=== PATIENT | female | born 1960 | race Caucasian/White ===

== ENCOUNTER 2020-01-05 17:29 | Inpatient (IN) | payer MEDICARE, SELFPAY ==
--- NOTE | ~2020-01-05 | XR_ITS ---
XR chest 1V portable DATE: 01/13/2020 11:07 INDICATION: Shortness of breath TECHNIQUE: Portable AP chest on 01/13/2020 1104 hours COMPARISON: None FINDINGS: Borderline or mild cardiac enlargement. Pulmonary vascular redistribution suggests mild pul monary venous hypertension. Calcified right upper lobe pulmonary granuloma. No pulmonary infiltrate o r consolidation, pleural effusion or pneumothorax is noted otherwise. Calcifications in the region of the left rotator cuff suggesting calcific tendinitis. IMPRESSION: Borderline heart size, pulmonary vascular redistribution; mild pulmonary venous hypertens ion is suggested. Reviewed, dictated and finalized at location A. IMPRESSION: Borderline heart size, pulmonary vascular redistribution; mild pulm onary venous hypertension is suggested.
--- NOTE | ~2020-01-05 | XR_ITS ---
EXAMINATION: XR chest 2V DATE: 01/15/2020 11:48 INDICATION: Cough TECHNIQUE: PA and lateral views of the chest are obtained. COMPARISON: 01/13/2020 FINDINGS: The lungs are free of acute opacities. There is no pleural effusion or pneumothorax. The ca rdiomediastinal silhouette is normal. A left upper extremity PICC ends with its tip in the distal sup erior vena cava. There is mild thoracic spondylosis. IMPRESSION: 1. No acute cardiopulmonary abnormality. Reviewed, dictated and finalized at location A.
--- NOTE | ~2020-01-05 | XR_ITS ---
EXAMINATION: XR knee RT min 4V EXAM DATE: 01/16/2020 16:40 INDICATION: One-month postop. TECHNIQUE: Right knee frontal, crosstable lateral, orthogonal oblique projections for interpretation . There is no prior study for comparison. FINDINGS: Right knee joint packed with orthopedic cement, and there is surgical arthrodesis with lucius s. Small foci of gas identified anterior to the patellar tendon. There is swelling surrounding the kn ee joint. Comparison with previous images would be helpful. There is some lucency along the anterolateral aspect of the proximal tibial metaphysis, region of the tibial tuberosity of uncertain clinical significance. This region has been indicated. IMPRESSION: 1. Right knee surgical changes. 2. Localized osteopenia at the tibial tuberosity. Small focus of gas anterior to the patellar tendon . Sequela from infection not excludable. Reviewed, dictated and finalized at location A. IMPRESSION: 1. Right knee surgical changes. 2. Localized osteopenia at the tibial tuberosity. Small focus of gas anterior to the patellar tendon. Sequela from infection not excludable.
[2020-01-05 18:02] VITALS: BP 171/67; PULSE 84; RESP 22; TEMP 37.1; O2SAT 96
[2020-01-05 18:04] VITALS: BMI 40.0
[2020-01-05 18:44] LABS: Glucose Point of Care 231 (65-105)
--- NOTE | 2020-01-05 19:20 | PC.NURSE ---
Patient ambulated one assist with wheeled walker and gait belt. LA PICC flushed freely, no blood return.
[2020-01-05 20:54] LABS: Glucose Point of Care 356 (65-105)
[2020-01-05 21:16] VITALS: PULSE 66
[2020-01-05] MEDS: hydrALAZINE HCL 25 MG TABLET PO (21:16)
[2020-01-05] MEDS: INSULIN GLARGINE (*BKC) 100 UNITS/ML 38 UNITS SUB-Q (21:16)
[2020-01-05] MEDS: METOPROLOL TARTRATE 50 MG TAB PO (21:16)
--- NOTE | 2020-01-05 22:00 | PC.NURSE ---
Patient BS elevated 356. New order recieved for 1x dose of novolog 70/30. Also received new order for lozenges
[2020-01-06] VITALS: BP 185/70; PULSE 80; RESP 16; TEMP 36.3; O2SAT 92
--- NOTE | 2020-01-06 00:28 | PM.EVENT ---
Event Note Event Note Event Note: Pt admitted in recovery from Covid pneumonia, right knee septic arthritis and consequential weakness. Alert, oriented, talkative, in a happy mood. No oxygen in use. Respirations not labored. Speaks full sentences. Decreased breath sounds with wheezes throughout. No rales or rhonchi. Right knee incision is stapled. Dilute blood drainage on distal portion of dressing. No redness or swelling near incision edges. Orders written per d.c. instructions.
[2020-01-06] MEDS: ALBUTEROL SULFATE (*SP) INHALER 2 PUFF INHALATION ×3 (06:19→21:51)
[2020-01-06] MEDS: hydrALAZINE HCL 25 MG TABLET PO ×3 (06:19→21:23)
[2020-01-06 06:58] LABS: Glucose Point of Care 111 (65-105)
[2020-01-06 08:00] VITALS: BP 178/52; PULSE 91; RESP 26; TEMP 37.2; O2SAT 98
[2020-01-06 08:13] VITALS: PULSE 91
[2020-01-06] MEDS: ENOXAPARIN 40 MG/0.4 ML SYRINGE SUB-Q (08:13)
[2020-01-06] MEDS: ASPIRIN 325 MG ENTERIC TABLET PO (08:13)
[2020-01-06] MEDS: METOPROLOL TARTRATE 50 MG TAB PO ×2 (08:13→21:23)
[2020-01-06] MEDS: ATORVASTATIN 10 MG TABLET 40 MG PO (08:14)
[2020-01-06] MEDS: FERROUS SULFATE 324 MG TABLET PO (08:14)
[2020-01-06] MEDS: PANTOPRAZOLE 40 MG TABLET PO (08:14)
[2020-01-06] MEDS: FUROSEMIDE 40 MG TABLET PO (08:14)
[2020-01-06] MEDS: lisinopriL 20 MG TABLET 40 MG PO (08:14)
[2020-01-06] MEDS: AMLODIPINE BESYLATE 5 MG TABLET 10 MG PO (08:15)
--- NOTE | 2020-01-06 10:43 | PM.IMHP ---
H&P: HPI History of Present Illness Chief complaint: swingbed Narrative: Renate Godinez is a 59 year old female admitted to swing rehab from [facility] in [facility] for weakness, recovering from COVID -19 infection, recovering from right knee septic arthritis IND, and continued treatment of type 2 diabetes and diastolic heart failure. I was able to witness the patient transfer from her recliner to her commode with assistance x1, using a gait belt and the patient using her walker. She is consistently elevating her right leg using the recliner or a trash can. I have placed orders for wound care of the right knee, ice packs as needed, James hose stockings to be applied,and elevation as needed. We will continue IV vancomycin as ordered at her discharge from [facility]. She will have a PT and OT evaluation today, she is currently on room air, has an occasional cough, but did not appear short of breath or dyspnea during our long conversation or during her transfer. She does have wheezing with lung auscultation and diminished areas throughout. When I walked in for my 1st examination of this patient, she had just completed making a large puddle of urine on the floor in front of her recliner. The nursing staff had warned me that she had been doing this throughout the morning, despite nursing staff having cleaned her up multiple times. The patient has been urinating on the floor, on her recliner, not keeping her depends on, not calling the staff, and saying there is nothing she could do about it since she is on diuretics. Renate and I had a discussion about the importance of her planning had by keeping the gait belt on her body and by pushing the nurse call button will had a time if possible. I also informed her that she needs to keep her depends on and wear them, not refusing them in the future. She denies any trouble with bowel movements, eating and drinking, and understands that she needs to work on her urinary incontinence as this poses a great risk for her to fall and/or to develop skin breakdown. She voiced understanding and will work on a plan with the nursing staff to get this under control. Review of Systems Review of Systems: All systems reviewed & are unremarkable except as noted in HPI and below Constitutional: Constitutional: Reports as per HPI, Denies excessive sweating, Denies headache(s), Denies increased appetite, Denies snoring, Reports weakness (due to right Knee I and D paired with her level of obesity/deconditioning) and Denies weight gain Eyes: Eyes: Reports as per HPI, Denies blurry vision, Denies exophthalmos, Denies diplopia, Denies floaters, Denies loss of peripheral vision and Denies photophobia ENT: Reports as per HPI, Denies Normal hearing present, Denies facial pain, Denies headache(s), Denies nasal congestion, Denies odynophagia and Denies tinnitus Cardiovascular: Cardiovascular: Reports as per HPI, Denies chest pain, Denies diaphoresis, Denies lightheadedness and Denies palpitations Respiratory: Respiratory: Reports as per HPI, Denies no additional respiratory complaints, Denies chest congestion, Denies cough, Denies hemoptysis, Denies dyspnea, Denies dyspnea on exertion, Denies snoring and Denies wheezing Gastrointestinal: Gastrointestinal: Reports as per HPI, Denies abdominal pain, Denies melena, Denies bloating, Denies hematochezia, Denies constipation, Denies heartburn, Denies diarrhea, Denies nausea, Denies odynophagia, Denies vomiting and Denies hematemesis Genitourinary: Genitourinary: Reports as per HPI, Denies hematuria, Denies urinary frequency, Reports nocturia ( On a morning diuretic pill.), Denies flank pain, Reports urinary incontinence, Denies urinary hesitancy and Reports urinary urgency Musculoskeletal: Musculoskeletal: Reports as per HPI, Denies back pain, Reports myalgias, Reports arthralgias ( Right knee pain due to septic arthritis, I and D), Reports joint swelling, Denies neck pain and
[2020-01-06 12:21] LABS: Glucose Point of Care 176 (65-105)
[2020-01-06 16:00] VITALS: BP 149/71; PULSE 88; RESP 20; TEMP 37.1; O2SAT 93
[2020-01-06 16:05] LABS: Hematocrit 34.9 % (35.0-49.0); Hemoglobin 10.4 g/dL (12.0-15.0); Mean Corpuscular HGB Conc 29.8 g/dL (32.0-36.0); Mean Corpuscular Hemoglobin 26.7 pg (27.0-31.0); Mean Corpuscular Volume 89.5 fL (78.0-102.0); Mean Platelet Volume 11.1 fl (9.2-11.8); Platelet Count Result 292 K/mm3 (150-420); Red Cell Distribution Width 19.4 % (11.6-14.4)
--- NOTE | 2020-01-06 16:13 | PC.NURSE ---
Patient refused NICKI carrizales
[2020-01-06 16:32] LABS: Band Neutrophils Percent 0 % (0-6); Eosinophils Percent Manual 10 % (1-6); Lymphocytes Absolute Manual 0.75 K/mm3 (1.1-4.5); Lymphocytes Percent Manual 15 % (18-44); Monocytes Absolute Manual 0.25 K/mm3 (0.1-0.90); Monocytes Percent Manual 5 % (3-9); Neutrophils Percent Manual 70 % (46-73); Platelet Estimate Adequate (Adequate); Total Cells Counted 100
[2020-01-06 16:40] LABS: Hemoglobin A1C 7.3 % (<5.7)
[2020-01-06 16:41] LABS: Alanine Aminotransferase 15 U/L (14-59); Albumin Level 3.1 g/dL (3.4-5.0); Alkaline Phosphatase 82 U/L (46-116); Anion Gap 14.4 mmol/L (7-16); Aspartate Amino Transferase 14 U/L (15-37); Bilirubin,Total 0.3 mg/dL (0.00-1.00); Blood Urea Nitrogen 9 mg/dL (7-18); CRP 2.9 mg/dL (0.0-0.9); Calcium 8.9 mg/dL (8.5-10.1); Carbon Dioxide 31 mmol/L (21-32); Chloride 99 mmol/L (98-108); Estimated Glomerular Filt Rate > 60; Ferritin 73 ng/mL (8-252); Glucose 209 mg/dL (70-99); Iron 35 ug/dL (50-170); Osmolality Calculated 294 mOsm/kg (285-295); Percent Iron Saturation 16 % (12-57); Potassium 4.4 mmol/L (3.5-5.1); Sodium 140 mmol/L (136-145)
[2020-01-06 16:46] LABS: Thyroid Stimulating Hormone Reflex 2.87 u/IU/mL (0.36-3.74)
[2020-01-06 21:15] LABS: Glucose Point of Care 329 (65-105)
[2020-01-06] MEDS: INSULIN GLARGINE (*BKC) 100 UNITS/ML 38 UNITS SUB-Q (21:22)
[2020-01-06] MEDS: BENZOCAINE/MENTHOL (*BKC) 18 EA LOZENGE 1 LOZENGE PO (22:02)
[2020-01-06 23:50] VITALS: BP 134/65; PULSE 75; RESP 14; TEMP 36.8; O2SAT 94
[2020-01-07] MEDS: hydrALAZINE HCL 25 MG TABLET PO ×3 (05:44→21:43)
[2020-01-07] MEDS: ALBUTEROL SULFATE (*SP) INHALER 2 PUFF INHALATION ×3 (05:45→21:42)
[2020-01-07 07:47] LABS: Glucose Point of Care 209 (65-105)
[2020-01-07 08:00] VITALS: BP 135/68; PULSE 72; RESP 14; TEMP 36.8; O2SAT 93
[2020-01-07] MEDS: AMLODIPINE BESYLATE 5 MG TABLET 10 MG PO (08:53)
[2020-01-07] MEDS: ASPIRIN 325 MG ENTERIC TABLET PO (08:53)
[2020-01-07] MEDS: ATORVASTATIN 10 MG TABLET 40 MG PO (08:53)
[2020-01-07] MEDS: FERROUS SULFATE 324 MG TABLET PO (08:54)
[2020-01-07] MEDS: METOPROLOL TARTRATE 50 MG TAB PO ×2 (08:54→21:43)
[2020-01-07] MEDS: ENOXAPARIN 40 MG/0.4 ML SYRINGE SUB-Q (08:54)
[2020-01-07] MEDS: FUROSEMIDE 40 MG TABLET PO (08:54)
[2020-01-07] MEDS: PANTOPRAZOLE 40 MG TABLET PO (08:54)
[2020-01-07] MEDS: lisinopriL 20 MG TABLET 40 MG PO (08:55)
[2020-01-07 10:14] LABS: Add Urine Microscopic? YES; Appearance Urine Sl Cloudy (Clear); Bilirubin Urine Negative (Negative); Blood Urine Negative (Negative); Color Urine Yellow (Yellow); Glucose Urine UA Negative (Negative); Ketones Urine Negative (Negative); Leukocyte Esterase Ur Negative (Negative); Nitrate Urine Negative (Negative); Protein Urine Negative (Negative); Urobilinogen Urine 0.2 mg/dL (0.2-1.0); pH Urine 6.5 (5.0-8.0)
[2020-01-07 10:46] LABS: RBC Urine None seen /hpf (0-2); Squamous Epithelial Cell Urine Many /hpf (Few); WBC Urine None seen /hpf (0-3)
[2020-01-07 10:47] LABS: Bacteria Urine Trace /hpf
[2020-01-07 12:09] LABS: Glucose Point of Care 185 (65-105)
[2020-01-07] MEDS: BENZOCAINE/MENTHOL (*BKC) 18 EA LOZENGE 1 LOZENGE PO ×2 (12:13→21:45)
[2020-01-07 16:00] VITALS: BP 128/66; PULSE 74; RESP 16; TEMP 36.9; O2SAT 95
[2020-01-07 16:54] LABS: Glucose Point of Care 200 (65-105)
--- NOTE | 2020-01-07 20:05 | PCDIET ---
Patient up in recliner with legs elevated. Refuses NICKI carrizales. PICC line intact with no drainage or swelling. Dressing clean, dry, intact.
[2020-01-07] MEDS: INSULIN GLARGINE (*BKC) 100 UNITS/ML 38 UNITS SUB-Q (21:41)
[2020-01-07] MEDS: GABAPENTIN 400 MG CAPSULE PO (21:42)
[2020-01-07 22:19] LABS: Glucose Point of Care 300 (65-105)
[2020-01-07 23:37] VITALS: BP 133/45; PULSE 74; RESP 18; TEMP 37.1; O2SAT 94
--- NOTE | 2020-01-07 23:45 | PC.NURSE ---
at 2309 on 01/07/2020 a norco was scanned out but it had to be wasted because it fell on the floor before administration. A new norco was pulled and given however I was unable to undo the administration of the wasted norco pill so I was unable to scan out the norco that was pulled after the first pill was wasted.
[2020-01-08] MEDS: hydrALAZINE HCL 25 MG TABLET PO ×3 (06:27→21:21)
[2020-01-08] MEDS: ALBUTEROL SULFATE (*SP) INHALER 2 PUFF INHALATION ×2 (06:27→18:42)
[2020-01-08 08:00] VITALS: BP 130/56; PULSE 72; RESP 18; TEMP 37.2; O2SAT 94
[2020-01-08] MEDS: ATORVASTATIN 10 MG TABLET 40 MG PO (08:26)
[2020-01-08] MEDS: ASPIRIN 325 MG ENTERIC TABLET PO (08:26)
[2020-01-08] MEDS: FUROSEMIDE 40 MG TABLET PO (08:27)
[2020-01-08] MEDS: AMLODIPINE BESYLATE 5 MG TABLET 10 MG PO (08:27)
[2020-01-08] MEDS: PANTOPRAZOLE 40 MG TABLET PO (08:27)
[2020-01-08] MEDS: FERROUS SULFATE 324 MG TABLET PO (08:27)
[2020-01-08] MEDS: lisinopriL 20 MG TABLET 40 MG PO (08:27)
[2020-01-08] MEDS: METOPROLOL TARTRATE 50 MG TAB PO ×2 (08:28→21:21)
[2020-01-08] MEDS: ENOXAPARIN 40 MG/0.4 ML SYRINGE SUB-Q (08:28)
[2020-01-08 10:43] LABS: Glucose Point of Care 162 (65-105)
[2020-01-08 11:47] LABS: Glucose Point of Care 240 (65-105)
--- NOTE | 2020-01-08 15:07 | PM.EVENT ---
Event Note Event Note Event Note: reviewed patient labs and vital signs
[2020-01-08 16:00] VITALS: BP 124/50; PULSE 66; RESP 14; TEMP 36.8; O2SAT 94
[2020-01-08 16:49] LABS: Glucose Point of Care 307 (65-105)
--- NOTE | 2020-01-08 17:41 | PC.NURSE ---
Patient up in recliner. [facility]. Tolerated well. Able to feed self. LCTA, bowel sounds present. PICC line dressing clean, dry, and intact with no redness, edema or drainage oberved around the insertion site. Pleasant and cooperative. Observed occasional nonproductive cough. Feeds self tray. Call light and possessions within reach.
--- NOTE | 2020-01-08 18:37 | PC.NURSE ---
Up to commode and back to recliner with walker and stand by assist. Tolerated well. Continues in isolation. Nonproductive cough noted occasionally. Call light and belongings within reach.
[2020-01-08] MEDS: PHARMACIST COMMUNICATION ORDER 1 EACH XX (20:01)
[2020-01-08 20:57] LABS: Vancomycin Trough 12.8 ug/mL (10.0-15.0)
--- NOTE | 2020-01-08 21:11 | PC.NURSE ---
Pharmacy called and no change in vancomycin dose
--- NOTE | 2020-01-08 21:14 | PC.NURSE ---
Candy from pharmacy called back, orders given to give the 500mg dose of vac tonight, and the dose will change to 750mg beginning in the morning.
[2020-01-08 21:21] VITALS: PULSE 65
[2020-01-08] MEDS: INSULIN GLARGINE (*BKC) 100 UNITS/ML 38 UNITS SUB-Q (21:21)
[2020-01-08] MEDS: BENZOCAINE/MENTHOL (*BKC) 18 EA LOZENGE 1 LOZENGE PO (21:22)
[2020-01-08 21:48] LABS: Glucose Point of Care 406 (65-105)
--- NOTE | 2020-01-08 21:50 | PC.NURSE ---
Call placed to Dr Montes, report given of patient blood glucose of 406, stated he will put in sliding scale insulin orders
[2020-01-08 23:06] VITALS: BP 128/50; PULSE 77; RESP 20; TEMP 37; O2SAT 90
--- NOTE | 2020-01-09 00:30 | PC.NURSE ---
pt had urinated in the chair and floor, cleaned and new linen applied, pt reports she was asleep and couldn't make it in time
[2020-01-09] MEDS: BENZOCAINE/MENTHOL (*BKC) 18 EA LOZENGE 1 LOZENGE PO (02:49)
--- NOTE | 2020-01-09 03:05 | PC.NURSE ---
pt sitting in recliner watching tv, belongings and call light within reach, pt given hot tea
[2020-01-09] MEDS: hydrALAZINE HCL 25 MG TABLET PO ×3 (05:20→21:24)
--- NOTE | 2020-01-09 07:39 | PHAR ---
spoke with [facility]pt [facility] was prior. confirmed pt was on vanc 500mg q12h prior to discharge to [facility]. pt was prev on 750mg q12h but trough was 21.5 on this dose, so dose was lowered to 500mg q12h and they had recorded trough of 17.
[2020-01-09 08:00] VITALS: BP 139/75; PULSE 72; RESP 16; TEMP 36.8; O2SAT 94
[2020-01-09] MEDS: ALBUTEROL SULFATE (*SP) INHALER 2 PUFF INHALATION ×3 (08:00→17:08)
[2020-01-09] MEDS: ASPIRIN 325 MG ENTERIC TABLET PO (08:00)
[2020-01-09] MEDS: lisinopriL 20 MG TABLET 40 MG PO (08:01)
[2020-01-09] MEDS: METOPROLOL TARTRATE 50 MG TAB PO ×2 (08:01→21:24)
[2020-01-09] MEDS: ATORVASTATIN 10 MG TABLET 40 MG PO (08:01)
[2020-01-09] MEDS: AMLODIPINE BESYLATE 5 MG TABLET 10 MG PO (08:01)
[2020-01-09] MEDS: FERROUS SULFATE 324 MG TABLET PO (08:02)
[2020-01-09] MEDS: ENOXAPARIN 40 MG/0.4 ML SYRINGE SUB-Q (08:02)
[2020-01-09] MEDS: PANTOPRAZOLE 40 MG TABLET PO (08:02)
[2020-01-09] MEDS: FUROSEMIDE 40 MG TABLET PO (08:02)
[2020-01-09 08:18] LABS: Glucose Point of Care 245 (65-105)
[2020-01-09 11:39] LABS: Glucose Point of Care 359 (65-105)
--- NOTE | 2020-01-09 14:12 | P.PNIM_ITS ---
Progress Note: A&P Assessment and Plan (1) Weakness: Code(s): R53.1 - Weakness Status: Acute Assessment and Plan: * Exhibit tolerance during physical activity as evidenced by a normal fluctuation of vital signs during physical activity. * Patient will be ability to perform required activities of daily living. * Provide appropriate nutrition for healing and strength. * Use appropriate to prevent falls. * Continue physical therapy/occupational therapy. (2) COVID-19 virus infection: Code(s): U07.1 - COVID-19 Status: Acute Assessment and Plan: * continue airborne isolation for 72 hours until verified fever free * albuterol inhaler scheduled p.r.n. * vital signs and pulse ox checked daily * she is currently a full code and according to [place]'s note her sister Mumtaz Soto is to make decisions for her if she is unable to make them on her own (3) Septic arthritis of knee, right: Code(s): M00.9 - Pyogenic arthritis, unspecified Status: Acute Assessment and Plan: * Recurrent right prostatic knee septic arthritis status post right knee I and D Plus exchange of antibiotic cement spacer for free current carol ann prostatic infection * continue antibiotics for her knee, IV vancomycin until January 26. * she is to follow-up with Dr. Estrada regarding orthopedic questions and dressing changes * PT OT evaluation and treatment * daily dressing changes, p.r.n. dressing changes if dressing saturated * elevate lower extremities throughout the day to help improve edema and minimize swelling * apply ice to the right knee or right lower extremity as needed to reduce swelling and improved pain control * apply Jamse hose stockings knee-highs daily * black wrap-around brace in place for support to right knee (4) Type 2 diabetes mellitus: Code(s): E11.9 - Type 2 diabetes mellitus without complications Status: Acute Assessment and Plan: * sliding scale insulin with hypoglycemia p.r.n. in place * Blood sugar less than 300 will adjust as needed * Continue diabetic consistent carb diet (5) Diastolic heart failure: Code(s): I50.30 - Unspecified diastolic (congestive) heart failure Status: Acute Assessment and Plan: * continue her home Lasix dose of 40 mg p.o. daily * hydralazine was recently added to achieve better blood pressure control at [facility] * [facility] also completed the echo showing moderate LVH Subjective Date/time seen: 01/09/20 14:12 patient is sitting up in chair at the time of assessment surgical site to the right knee clean dry intact. she has no complaints at this time. She is requesting that we add tramadol to pain regimen. She noted that tramadol is what she takes at home. She also noted that her physical therapy/ occupational therapy is going well. She remains nonweightbearing to right extremity. Patient able to tolerate all meals , slept well. Patient denies SOB, CP, palpitation, extremity numbness, lightheadness, dizziness, constipation, diarrhea, chills or fever. Review of Systems Review of Systems: All systems reviewed & are unremarkable except as noted in HPI and below Constitutional: Constitutional: Reports as per HPI, Denies excessive sweating, Denies headache(s), Denies increased appetite, Denies snoring, Reports weakness (due to right Knee I and D paired with her level of obesity/deconditioning) and Denies weight gain Eyes: Eyes: Reports as per HPI, Denies blurry vision, Denies exophthalmos, Denies diplopia, Denies floaters, Denies l
--- NOTE | 2020-01-09 14:12 | PM.IMPN ---
Progress Note: A&P Assessment and Plan (1) Weakness: Code(s): R53.1 - Weakness Status: Acute Assessment and Plan: Exhibit tolerance during physical activity as evidenced by a normal fluctuation of vital signs during physical activity. Patient will be ability to perform required activities of daily living. Provide appropriate nutrition for healing and strength. Use appropriate to prevent falls. Continue physical therapy/occupational therapy. (2) COVID-19 virus infection: Code(s): U07.1 - COVID-19 Status: Acute Assessment and Plan: continue airborne isolation for 72 hours until verified fever free albuterol inhaler scheduled p.r.n. vital signs and pulse ox checked daily she is currently a full code and according to [place]'s note her sister Mumtaz Soto is to make decisions for her if she is unable to make them on her own (3) Septic arthritis of knee, right: Code(s): M00.9 - Pyogenic arthritis, unspecified Status: Acute Assessment and Plan: Recurrent right prostatic knee septic arthritis status post right knee I and D Plus exchange of antibiotic cement spacer for free current carol ann prostatic infection continue antibiotics for her knee, IV vancomycin until January 26. she is to follow-up with Dr. Estrada regarding orthopedic questions and dressing changes PT OT evaluation and treatment daily dressing changes, p.r.n. dressing changes if dressing saturated elevate lower extremities throughout the day to help improve edema and minimize swelling apply ice to the right knee or right lower extremity as needed to reduce swelling and improved pain control apply James hose stockings knee-highs daily black wrap-around brace in place for support to right knee (4) Type 2 diabetes mellitus: Code(s): E11.9 - Type 2 diabetes mellitus without complications Status: Acute Assessment and Plan: sliding scale insulin with hypoglycemia p.r.n. in place Blood sugar less than 300 will adjust as needed Continue diabetic consistent carb diet (5) Diastolic heart failure: Code(s): I50.30 - Unspecified diastolic (congestive) heart failure Status: Acute Assessment and Plan: continue her home Lasix dose of 40 mg p.o. daily hydralazine was recently added to achieve better blood pressure control at [facility] also completed the echo showing moderate LVH Subjective Date/time seen: 01/09/20 14:12 patient is sitting up in chair at the time of assessment surgical site to the right knee clean dry intact. she has no complaints at this time. She is requesting that we add tramadol to pain regimen. She noted that tramadol is what she takes at home. She also noted that her physical therapy/ occupational therapy is going well. She remains nonweightbearing to right extremity. Patient able to tolerate all meals , slept well. Patient denies SOB, CP, palpitation, extremity numbness, lightheadness, dizziness, constipation, diarrhea, chills or fever. Review of Systems Review of Systems: All systems reviewed & are unremarkable except as noted in HPI and below Constitutional: Constitutional: Reports as per HPI, Denies excessive sweating, Denies headache(s), Denies increased appetite, Denies snoring, Reports weakness (due to right Knee I and D paired with her level of obesity/deconditioning) and Denies weight gain Eyes: Eyes: Reports as per HPI, Denies blurry vision, Denies exophthalmos, Denies diplopia, Denies floaters, Denies loss of peripheral vision and Denies photophobia ENT: Reports as per HPI, Denies Normal hearing present, Denies facial pain, Denies headache(s), Denies nasal congestion, Denies neck pain, Denies odynophagia and Denies tinnitus Cardiovascular: Cardiovascular: Reports as per HPI, Denies chest pain, Denies diaphoresis, Denies lightheadedness, Denies palpitations, Denies dyspnea and Denies dyspnea o
[2020-01-09 16:00] VITALS: BP 139/66; PULSE 86; RESP 18; TEMP 36.6; O2SAT 96
[2020-01-09 17:28] LABS: Glucose Point of Care 363 (65-105)
[2020-01-09 18:26] LABS: Vitamin D 25 Hydroxy 6 ng/mL (30-100)
[2020-01-09] MEDS: INSULIN GLARGINE (*BKC) 100 UNITS/ML 38 UNITS SUB-Q (21:24)
[2020-01-09 21:48] LABS: Glucose Point of Care 413 (65-105)
--- NOTE | 2020-01-09 23:52 | P.PNCROSS_ITS ---
Event Note Event Note Event Note: Patient denies complaints save for occasional shortness of breath and cough. alert and oriented. Mucous membranes are [place] and moist. Regular rate and rhythm. Distal pulses are full and symmetric. Extremities are warm dry and pink. No edema. Bibasilar expiratory wheezes. No increased work of breathing. Continuing physical therapy for right knee, currently only at toe-touch. I have examined the patient and reviewed the chart. I discussed the patient's care with Willy Curran APN and agree with her assessment and plan.
[2020-01-10] VITALS: BP 123/67; PULSE 70; RESP 24; TEMP 36.6; O2SAT 93
[2020-01-10 05:51] LABS: Estimated Glomerular Filt Rate > 60
[2020-01-10] MEDS: hydrALAZINE HCL 25 MG TABLET PO ×3 (05:55→21:25)
[2020-01-10 07:44] LABS: Glucose Point of Care 226 (65-105)
[2020-01-10 08:00] VITALS: BP 154/62; PULSE 87; RESP 22; TEMP 36.9; O2SAT 97
[2020-01-10] MEDS: ENOXAPARIN 40 MG/0.4 ML SYRINGE SUB-Q (08:57)
[2020-01-10 09:00] VITALS: PULSE 87
[2020-01-10] MEDS: FUROSEMIDE 40 MG TABLET PO (09:00)
[2020-01-10] MEDS: PANTOPRAZOLE 40 MG TABLET PO (09:00)
[2020-01-10] MEDS: ATORVASTATIN 10 MG TABLET 40 MG PO (09:00)
[2020-01-10] MEDS: METOPROLOL TARTRATE 50 MG TAB PO ×2 (09:00→21:25)
[2020-01-10] MEDS: AMLODIPINE BESYLATE 5 MG TABLET 10 MG PO (09:01)
[2020-01-10] MEDS: lisinopriL 20 MG TABLET 40 MG PO (09:01)
[2020-01-10] MEDS: FERROUS SULFATE 324 MG TABLET PO (09:01)
[2020-01-10] MEDS: ALBUTEROL SULFATE (*SP) INHALER 2 PUFF INHALATION ×3 (09:04→16:31)
[2020-01-10] MEDS: ASPIRIN 325 MG ENTERIC TABLET PO (09:04)
[2020-01-10 11:38] LABS: Glucose Point of Care 240 (65-105)
[2020-01-10 16:00] VITALS: BP 156/56; PULSE 75; RESP 22; TEMP 36.7
[2020-01-10 16:31] LABS: Glucose Point of Care 268 (65-105)
[2020-01-10 21:25] VITALS: PULSE 75
[2020-01-10] MEDS: INSULIN GLARGINE (*BKC) 100 UNITS/ML 38 UNITS SUB-Q (21:28)
[2020-01-10 21:41] LABS: Glucose Point of Care 278 (65-105)
[2020-01-11] VITALS: BP 152/60; PULSE 70; RESP 20; TEMP 36.7; O2SAT 92
[2020-01-11] MEDS: hydrALAZINE HCL 25 MG TABLET PO ×3 (05:38→21:49)
[2020-01-11 07:47] LABS: Glucose Point of Care 206 (65-105)
[2020-01-11 08:00] VITALS: BP 154/66; PULSE 82; RESP 20; TEMP 37.1; O2SAT 94
[2020-01-11] MEDS: ENOXAPARIN 40 MG/0.4 ML SYRINGE SUB-Q (08:09)
[2020-01-11] MEDS: ALBUTEROL SULFATE (*SP) INHALER 2 PUFF INHALATION ×3 (08:12→17:13)
[2020-01-11] MEDS: PANTOPRAZOLE 40 MG TABLET PO (08:12)
[2020-01-11] MEDS: FERROUS SULFATE 324 MG TABLET PO (08:12)
[2020-01-11] MEDS: ASPIRIN 325 MG ENTERIC TABLET PO (08:12)
[2020-01-11] MEDS: lisinopriL 20 MG TABLET 40 MG PO (08:13)
[2020-01-11] MEDS: ATORVASTATIN 10 MG TABLET 40 MG PO (08:13)
[2020-01-11] MEDS: FUROSEMIDE 40 MG TABLET PO (08:13)
[2020-01-11 08:14] VITALS: PULSE 88
[2020-01-11] MEDS: METOPROLOL TARTRATE 50 MG TAB PO ×2 (08:14→21:49)
[2020-01-11] MEDS: AMLODIPINE BESYLATE 5 MG TABLET 10 MG PO (08:14)
[2020-01-11 08:35] LABS: Hematocrit 31.2 % (35.0-49.0); Hemoglobin 9.6 g/dL (12.0-15.0); Mean Corpuscular HGB Conc 30.8 g/dL (32.0-36.0); Mean Corpuscular Hemoglobin 26.8 pg (27.0-31.0); Mean Corpuscular Volume 87.2 fL (78.0-102.0); Mean Platelet Volume 10.4 fl (9.2-11.8); Platelet Count Result 235 K/mm3 (150-420); Red Blood Count 3.58 M/mm3 (4.20-5.40); Red Cell Distribution Width 18.3 % (11.6-14.4); White Blood Count 5.5 K/mm3 (4.8-10.8)
[2020-01-11 08:48] LABS: Alanine Aminotransferase 13 U/L (14-59); Albumin Level 2.7 g/dL (3.4-5.0); Alkaline Phosphatase 74 U/L (46-116); Anion Gap 11.6 mmol/L (7-16); Aspartate Amino Transferase 11 U/L (15-37); Bilirubin,Total 0.2 mg/dL (0.00-1.00); Blood Urea Nitrogen 11 mg/dL (7-18); Calcium 9.1 mg/dL (8.5-10.1); Carbon Dioxide 32 mmol/L (21-32); Chloride 98 mmol/L (98-108); Estimated Glomerular Filt Rate > 60; Glucose 183 mg/dL (70-99); Osmolality Calculated 290 mOsm/kg (285-295); Potassium 3.6 mmol/L (3.5-5.1); Sodium 138 mmol/L (136-145); Total Protein 6.9 g/dL (6.4-8.2)
[2020-01-11 12:13] LABS: Glucose Point of Care 332 (65-105)
[2020-01-11 16:00] VITALS: BP 138/48; PULSE 78; RESP 16; TEMP 36.2; O2SAT 96
[2020-01-11] MEDS: hydrALAZINE 10 MG TABLET 5 MG PO (17:12)
[2020-01-11 17:26] LABS: Glucose Point of Care 344 (65-105)
[2020-01-11] MEDS: INSULIN GLARGINE (*BKC) 100 UNITS/ML 38 UNITS SUB-Q (21:48)
[2020-01-11] MEDS: BENZOCAINE/MENTHOL (*BKC) 18 EA LOZENGE 1 LOZENGE PO (21:50)
[2020-01-11 22:51] LABS: Glucose Point of Care 381 (65-105)
[2020-01-11 23:05] VITALS: BP 134/43; PULSE 82; RESP 18; TEMP 36.3; O2SAT 93
[2020-01-12] MEDS: hydrALAZINE HCL 25 MG TABLET PO ×3 (05:20→21:56)
[2020-01-12 07:30] VITALS: BP 133/51; PULSE 81; RESP 18; TEMP 36.8; O2SAT 93
[2020-01-12 08:21] LABS: Glucose Point of Care 273 (65-105)
[2020-01-12] MEDS: hydrALAZINE 10 MG TABLET 5 MG PO ×2 (09:23→17:14)
[2020-01-12 09:24] VITALS: PULSE 81
[2020-01-12] MEDS: METOPROLOL TARTRATE 50 MG TAB PO ×2 (09:24→21:56)
[2020-01-12] MEDS: PANTOPRAZOLE 40 MG TABLET PO (09:24)
[2020-01-12] MEDS: lisinopriL 20 MG TABLET 40 MG PO (09:24)
[2020-01-12] MEDS: FUROSEMIDE 40 MG TABLET PO (09:24)
[2020-01-12] MEDS: ASPIRIN 325 MG ENTERIC TABLET PO (09:24)
[2020-01-12] MEDS: ALBUTEROL SULFATE (*SP) INHALER 2 PUFF INHALATION ×3 (09:25→17:14)
[2020-01-12] MEDS: AMLODIPINE BESYLATE 5 MG TABLET 10 MG PO (09:25)
[2020-01-12] MEDS: FERROUS SULFATE 324 MG TABLET PO (09:25)
[2020-01-12] MEDS: ENOXAPARIN 40 MG/0.4 ML SYRINGE SUB-Q (09:25)
[2020-01-12] MEDS: ATORVASTATIN 10 MG TABLET 40 MG PO (09:25)
[2020-01-12] MEDS: BENZOCAINE/MENTHOL (*BKC) 18 EA LOZENGE 1 LOZENGE PO ×3 (09:40→22:12)
[2020-01-12 12:24] LABS: Glucose Point of Care 353 (65-105)
--- NOTE | 2020-01-12 14:25 | PC.NURSE ---
Patient sleeping quietly in recliner with BLE elevated. No distress noted. Call light and belongings at side.
[2020-01-12 15:45] VITALS: BP 124/51; PULSE 76; RESP 18; TEMP 36.6; O2SAT 96
[2020-01-12 17:48] LABS: Glucose Point of Care 251 (65-105)
[2020-01-12 20:57] LABS: Vancomycin Trough 19.5 ug/mL (10.0-15.0)
[2020-01-12 21:56] VITALS: PULSE 75
[2020-01-12] MEDS: INSULIN GLARGINE (*BKC) 100 UNITS/ML 38 UNITS SUB-Q (21:56)
[2020-01-12 22:12] LABS: Glucose Point of Care 375 (65-105)
[2020-01-13] VITALS: BP 148/54; PULSE 76; RESP 22; TEMP 36.9; O2SAT 93
[2020-01-13] MEDS: BENZOCAINE/MENTHOL (*BKC) 18 EA LOZENGE 1 LOZENGE PO ×3 (02:33→20:42)
[2020-01-13] MEDS: ALBUTEROL SULFATE (*SP) INHALER 2 PUFF INHALATION ×2 (02:49→09:11)
[2020-01-13] MEDS: BENZONATATE 100 MG CAPSULE 200 MG PO ×3 (04:22→17:12)
[2020-01-13 06:34] LABS: Hematocrit 30.8 % (35.0-49.0); Hemoglobin 9.1 g/dL (12.0-15.0); Mean Corpuscular HGB Conc 29.5 g/dL (32.0-36.0); Mean Platelet Volume 11.2 fl (9.2-11.8); Platelet Count Result 238 K/mm3 (150-420); Red Cell Distribution Width 18.3 % (11.6-14.4); White Blood Count 5.1 K/mm3 (4.8-10.8)
[2020-01-13 07:02] LABS: Alanine Aminotransferase 13 U/L (14-59); Albumin Level 2.9 g/dL (3.4-5.0); Alkaline Phosphatase 76 U/L (46-116); Anion Gap 7.8 mmol/L (7-16); Aspartate Amino Transferase 8 U/L (15-37); Bilirubin,Total 0.2 mg/dL (0.00-1.00); Blood Urea Nitrogen 11 mg/dL (7-18); Calcium 8.8 mg/dL (8.5-10.1); Carbon Dioxide 34 mmol/L (21-32); Chloride 97 mmol/L (98-108); Estimated Glomerular Filt Rate > 60; Glucose 282 mg/dL (70-99); Osmolality Calculated 289 mOsm/kg (285-295); Potassium 3.8 mmol/L (3.5-5.1); Sodium 135 mmol/L (136-145); Total Protein 6.6 g/dL (6.4-8.2)
[2020-01-13 07:30] VITALS: BP 154/67; PULSE 80; RESP 18; TEMP 36.8; O2SAT 91
[2020-01-13 07:55] LABS: Glucose Point of Care 297 (65-105)
[2020-01-13] MEDS: PANTOPRAZOLE 40 MG TABLET PO (09:11)
[2020-01-13] MEDS: ENOXAPARIN 40 MG/0.4 ML SYRINGE SUB-Q (09:11)
[2020-01-13] MEDS: ASPIRIN 325 MG ENTERIC TABLET PO (09:11)
[2020-01-13] MEDS: ATORVASTATIN 10 MG TABLET 40 MG PO (09:11)
[2020-01-13 09:12] VITALS: PULSE 80
[2020-01-13] MEDS: METOPROLOL TARTRATE 50 MG TAB PO ×2 (09:12→20:16)
[2020-01-13] MEDS: FUROSEMIDE 40 MG TABLET PO (09:12)
[2020-01-13] MEDS: hydrALAZINE HCL 25 MG TABLET 50 MG PO ×4 (09:12→20:15)
[2020-01-13] MEDS: AMLODIPINE BESYLATE 5 MG TABLET 10 MG PO (09:12)
[2020-01-13] MEDS: FERROUS SULFATE 324 MG TABLET PO (09:12)
[2020-01-13] MEDS: lisinopriL 20 MG TABLET 40 MG PO (09:13)
[2020-01-13 11:26] LABS: Glucose Point of Care 374 (65-105)
[2020-01-13 15:56] VITALS: BP 121/43; PULSE 98; RESP 18; TEMP 36.6; O2SAT 76
[2020-01-13 17:38] LABS: Glucose Point of Care 118 (65-105)
[2020-01-13 20:16] VITALS: PULSE 68
[2020-01-13] MEDS: INSULIN GLARGINE (*BKC) 100 UNITS/ML 38 UNITS SUB-Q (20:16)
[2020-01-13 20:29] LABS: Glucose Point of Care 230 (65-105)
--- NOTE | 2020-01-13 23:05 | PC.NURSE ---
pt sitting in recliner watching tv, denies any needs at this time.
[2020-01-14 00:33] VITALS: BP 147/54; PULSE 69; RESP 18; TEMP 36.8; O2SAT 93
--- NOTE | 2020-01-14 02:00 | PC.NURSE ---
pt resting in recliner, no evidence of distress noted
[2020-01-14] MEDS: BENZOCAINE/MENTHOL (*BKC) 18 EA LOZENGE 1 LOZENGE PO ×2 (03:56→14:09)
[2020-01-14 06:30] LABS: Estimated Glomerular Filt Rate > 60
[2020-01-14 08:00] VITALS: BP 118/46; PULSE 78; RESP 24; TEMP 36.6; O2SAT 94
[2020-01-14 08:10] LABS: Glucose Point of Care 126 (65-105)
[2020-01-14] MEDS: PANTOPRAZOLE 40 MG TABLET PO (09:18)
[2020-01-14] MEDS: ENOXAPARIN 40 MG/0.4 ML SYRINGE SUB-Q (09:18)
[2020-01-14] MEDS: AMLODIPINE BESYLATE 5 MG TABLET 10 MG PO (09:20)
[2020-01-14 09:22] VITALS: PULSE 78
[2020-01-14] MEDS: BENZONATATE 100 MG CAPSULE 200 MG PO ×3 (09:22→16:14)
[2020-01-14] MEDS: METOPROLOL TARTRATE 50 MG TAB PO (09:22)
[2020-01-14] MEDS: ASPIRIN 325 MG ENTERIC TABLET PO (09:22)
[2020-01-14] MEDS: ATORVASTATIN 10 MG TABLET 40 MG PO (09:22)
[2020-01-14] MEDS: FERROUS SULFATE 324 MG TABLET PO (09:23)
[2020-01-14] MEDS: lisinopriL 20 MG TABLET 40 MG PO (09:24)
[2020-01-14] MEDS: FUROSEMIDE 40 MG TABLET PO (09:25)
[2020-01-14] MEDS: hydrALAZINE HCL 25 MG TABLET 50 MG PO ×4 (09:32→21:10)
--- NOTE | 2020-01-14 10:29 | PC.NURSE ---
Right knee david intact, well approximated. No s/s infection.
[2020-01-14 11:59] LABS: Glucose Point of Care 190 (65-105)
--- NOTE | 2020-01-14 14:07 | P.PNIM_ITS ---
Progress Note: A&P Assessment and Plan (1) Weakness: Code(s): R53.1 - Weakness Status: Acute Assessment and Plan: * Exhibit tolerance during physical activity as evidenced by a normal fluctuation of vital signs during physical activity. * Patient will be ability to perform required activities of daily living. * Provide appropriate nutrition for healing and strength. * Use appropriate to prevent falls. * Continue physical therapy/occupational therapy. (2) COVID-19 virus infection: Code(s): U07.1 - COVID-19 Status: Acute Assessment and Plan: * continue airborne isolation for 72 hours until verified fever free * albuterol inhaler scheduled p.r.n. * vital signs and pulse ox checked daily * she is currently a full code and according to [place]'s note her sister Mumtaz Soto is to make decisions for her if she is unable to make them on her own * PREDNISONE AND ABX STARTED (3) Septic arthritis of knee, right: Code(s): M00.9 - Pyogenic arthritis, unspecified Status: Acute Assessment and Plan: * Recurrent right prostatic knee septic arthritis status post right knee I and D Plus exchange of antibiotic cement spacer for free current carol ann prostatic infection * continue antibiotics for her knee, IV vancomycin until January 26. * she is to follow-up with Dr. Estrada regarding orthopedic questions and dressing changes * PT OT evaluation and treatment * daily dressing changes, p.r.n. dressing changes if dressing saturated * elevate lower extremities throughout the day to help improve edema and minimize swelling * apply ice to the right knee or right lower extremity as needed to reduce swelling and improved pain control * apply James hose stockings knee-highs daily * black wrap-around brace in place for support to right knee (4) Type 2 diabetes mellitus: Code(s): E11.9 - Type 2 diabetes mellitus without complications Status: Acute Assessment and Plan: * sliding scale insulin with hypoglycemia p.r.n. in place * Blood sugar less than 300 will adjust as needed * Continue diabetic consistent carb diet (5) Diastolic heart failure: Code(s): I50.30 - Unspecified diastolic (congestive) heart failure Status: Acute Assessment and Plan: * continue her home Lasix dose of 40 mg p.o. daily * hydralazine was recently added to achieve better blood pressure control at [facility] * [facility] also completed the echo showing moderate LVH Subjective Date/time seen: 01/14/20 14:07 PATIENT CONTINUES TO HAVE AUDITORY WHEEZING WITH SHORTNESS OF BREATH. PATIENT CHEST X-RAY DOES NOT INDICATE PNEUMONIA. PATIENT ALSO HAS A HISTORY OF COVID-19. AFTER SPEAKING WITH DR. MELARA I HAVE DETERMINED THAT IS NECESSARY THAT THE PATIENT RECEIVES PREDNISONE I WILL ALSO START AN ANTIBIOTIC SEE THOUGH INHALERS ARE LUNGS ARE NOT IMPROVING HER CONDITION. Review of Systems Review of Systems: All systems reviewed & are unremarkable except as noted in HPI and below Constitutional: Constitutional: Reports as per HPI, Denies excessive sweating, Denies headache(s), Denies increased appetite, Denies snoring, Reports weakness (due to right Knee I and D paired with her level of obesity/deconditioning) and Denies weight gain Eyes: Eyes: Reports as per HPI, Denies blurry vision, Denies exophthalmos, Denies diplopia, Denies floaters, Denies loss of peripheral vision and Denies photophobia ENT: Reports as per HPI, Denies Normal hearing present, Denies facial pain, Denies headach
--- NOTE | 2020-01-14 14:07 | PM.IMPN ---
Progress Note: A&P Assessment and Plan (1) Weakness: Code(s): R53.1 - Weakness Status: Acute Assessment and Plan: Exhibit tolerance during physical activity as evidenced by a normal fluctuation of vital signs during physical activity. Patient will be ability to perform required activities of daily living. Provide appropriate nutrition for healing and strength. Use appropriate to prevent falls. Continue physical therapy/occupational therapy. (2) COVID-19 virus infection: Code(s): U07.1 - COVID-19 Status: Acute Assessment and Plan: continue airborne isolation for 72 hours until verified fever free albuterol inhaler scheduled p.r.n. 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 she is to follow-up with Dr. Estrada regarding orthopedic questions and dressing changes PT OT evaluation and treatment daily dressing changes, p.r.n. dressing changes if dressing saturated elevate lower extremities throughout the day to help improve edema and minimize swelling apply ice to the right knee or right lower extremity as needed to reduce swelling and improved pain control apply James hose stockings knee-highs daily black wrap-around brace in place for support to right knee (4) Type 2 diabetes mellitus: Code(s): E11.9 - Type 2 diabetes mellitus without complications Status: Acute Assessment and Plan: sliding scale insulin with hypoglycemia p.r.n. in place Blood sugar less than 300 will adjust as needed Continue diabetic consistent carb diet (5) Diastolic heart failure: Code(s): I50.30 - Unspecified diastolic (congestive) heart failure Status: Acute Assessment and Plan: continue her home Lasix dose of 40 mg p.o. daily hydralazine was recently added to achieve better blood pressure control at [facility] also completed the echo showing moderate LVH Subjective Date/time seen: 01/14/20 14:07 PATIENT CONTINUES TO HAVE AUDITORY WHEEZING WITH SHORTNESS OF BREATH. PATIENT CHEST X-RAY DOES NOT INDICATE PNEUMONIA. PATIENT ALSO HAS A HISTORY OF COVID-19. AFTER SPEAKING WITH DR. MELARA I HAVE DETERMINED THAT IS NECESSARY THAT THE PATIENT RECEIVES PREDNISONE I WILL ALSO START AN ANTIBIOTIC SEE THOUGH INHALERS ARE LUNGS ARE NOT IMPROVING HER CONDITION. Review of Systems Review of Systems: All systems reviewed & are unremarkable except as noted in HPI and below Constitutional: Constitutional: Reports as per HPI, Denies excessive sweating, Denies headache(s), Denies increased appetite, Denies snoring, Reports weakness (due to right Knee I and D paired with her level of obesity/deconditioning) and Denies weight gain Eyes: Eyes: Reports as per HPI, Denies blurry vision, Denies exophthalmos, Denies diplopia, Denies floaters, Denies loss of peripheral vision and Denies photophobia ENT: Reports as per HPI, Denies Normal hearing present, Denies facial pain, Denies headache(s), Denies nasal congestion, Denies neck pain, Denies odynophagia and Denies tinnitus Cardiovascular: Cardiovascular: Reports as per HPI, Denies chest pain, Denies diaphoresis, Denies lightheadedness, Denies palpitations, Denies dyspnea and Denies dyspnea on exertion Respiratory: Respiratory: Reports as per HPI, Denies no additional respiratory complaints, Denies chest congestion, Denies cough, Denies hemoptysis,
[2020-01-14] MEDS: predniSONE 20 MG TABLET 60 MG PO (15:31)
[2020-01-14 16:00] VITALS: BP 136/59; PULSE 81; RESP 24; TEMP 36.9; O2SAT 94
[2020-01-14 16:27] LABS: Glucose Point of Care 306 (65-105)
--- NOTE | 2020-01-14 17:53 | PC.NURSE ---
Notified Dr Marte patient is complaining of SOB Respirations 18, SPO2 94%, VSS, Patient requesting a neubulizer treatment. Dr Marte entering orders for labs and new medications.
[2020-01-14] MEDS: FUROSEMIDE INJ 40 MG/4 ML VIAL IV PUSH (18:21)
[2020-01-14 18:48] LABS: BNP 78 pg/mL (0-100)
[2020-01-14] MEDS: ALBUTEROL SULFATE (*SP) INHALER 1 PUFF (18:52)
[2020-01-14] MEDS: ALBUTEROL SULFATE (*SP) INHALER 2 PUFF INHALATION (21:11)
[2020-01-14] MEDS: INSULIN GLARGINE (*BKC) 100 UNITS/ML 38 UNITS SUB-Q (21:11)
[2020-01-14] MEDS: AMOXICILLIN/CLAVULANATE K 875-125 MG TAB 1 TABLET PO (21:18)
[2020-01-14 21:26] LABS: Glucose Point of Care 280 (65-105)
[2020-01-15] VITALS: BP 160/56; PULSE 98; RESP 20; TEMP 36.1; O2SAT 96
[2020-01-15 02:18] VITALS: PULSE 70
[2020-01-15] MEDS: METOPROLOL TARTRATE 50 MG TAB PO ×3 (02:18→22:05)
[2020-01-15] MEDS: ALBUTEROL SULFATE (*SP) INHALER 2 PUFF INHALATION ×4 (06:16→22:01)
[2020-01-15 08:00] VITALS: BP 148/64; PULSE 98; RESP 20; TEMP 36.9; O2SAT 95
[2020-01-15 08:22] LABS: Glucose Point of Care > 450 (65-105)
[2020-01-15] MEDS: ENOXAPARIN 40 MG/0.4 ML SYRINGE SUB-Q (09:08)
[2020-01-15] MEDS: AMOXICILLIN/CLAVULANATE K 875-125 MG TAB 1 TABLET PO ×2 (09:09→22:04)
[2020-01-15] MEDS: PANTOPRAZOLE 40 MG TABLET PO (09:09)
[2020-01-15] MEDS: predniSONE 20 MG TABLET 40 MG PO (09:09)
[2020-01-15] MEDS: AMLODIPINE BESYLATE 5 MG TABLET 10 MG PO (09:10)
[2020-01-15 09:11] VITALS: PULSE 98
[2020-01-15] MEDS: FERROUS SULFATE 324 MG TABLET PO (09:11)
[2020-01-15] MEDS: hydrALAZINE HCL 25 MG TABLET 50 MG PO ×4 (09:11→22:05)
[2020-01-15] MEDS: lisinopriL 20 MG TABLET 40 MG PO (09:11)
[2020-01-15] MEDS: FUROSEMIDE 40 MG TABLET PO (09:11)
[2020-01-15] MEDS: ATORVASTATIN 10 MG TABLET 40 MG PO (09:12)
[2020-01-15 09:13] LABS: Vancomycin Trough 25.4 ug/mL (10.0-15.0)
[2020-01-15] MEDS: ASPIRIN 325 MG ENTERIC TABLET PO (09:13)
[2020-01-15 09:25] LABS: BNP 178 pg/mL (0-100)
[2020-01-15 11:44] LABS: Glucose Point of Care 437 (65-105)
[2020-01-15] MEDS: BENZONATATE 100 MG CAPSULE 200 MG PO (12:43)
[2020-01-15 13:31] LABS: Glucose Point of Care 403 (65-105)
[2020-01-15 16:00] VITALS: BP 99/42; PULSE 79; RESP 18; TEMP 37; O2SAT 96
[2020-01-15 17:14] LABS: Glucose Point of Care 393 (65-105)
[2020-01-15 22:02] VITALS: BP 130/42
[2020-01-15] MEDS: INSULIN GLARGINE (*BKC) 100 UNITS/ML 38 UNITS SUB-Q (22:06)
[2020-01-15 22:21] LABS: Glucose Point of Care > 450 (65-105)
[2020-01-15] MEDS: BENZOCAINE/MENTHOL (*BKC) 18 EA LOZENGE 1 LOZENGE PO (22:27)
--- NOTE | 2020-01-15 22:45 | PC.NURSE ---
Spoke with Dr. Montes about Patients blood sugar result. N.O. received to give 10 ut of humalog now and recheck Blood sugar in 2hrs. If blood sugar is above 400 notify
[2020-01-16] VITALS: BP 117/49; PULSE 69; RESP 20; TEMP 36.9; O2SAT 94
[2020-01-16 01:54] LABS: Glucose > 500 mg/dL (70-99)
--- NOTE | 2020-01-16 01:59 | PC.NURSE ---
Lab called to report a critical glucose of over 500. Dr. Montes called but he was with a patient. VASQUEZ Pandya RN, took the message.
--- NOTE | 2020-01-16 03:19 | PC.NURSE ---
New orders received and noted from Dr. Montes.
--- NOTE | 2020-01-16 03:57 | PC.NURSE ---
0305 New orders received and noted.
--- NOTE | 2020-01-16 04:17 | PC.NURSE ---
Patient reporting abdominal pain and urinary urgency. She is also reporting noticing an increased amount of whitish mucus consistency discharge when she voids. [facility] noted no mucus visible in her urine. Urine appears clear, dark yellow.
[2020-01-16] MEDS: INSULIN HUMAN REGULAR (*BKC) 100 UNITS/ML 8 UNITS SUB-Q (04:28)
[2020-01-16 04:37] LABS: Glucose Point of Care > 450 (65-105)
[2020-01-16] MEDS: ALBUTEROL SULFATE (*SP) INHALER 2 PUFF INHALATION ×3 (06:40→20:30)
[2020-01-16 07:34] LABS: Glucose Point of Care 418 (65-105)
[2020-01-16 07:42] VITALS: BP 146/53; PULSE 74; RESP 18; TEMP 36.6; O2SAT 96
[2020-01-16 08:07] LABS: Anion Gap 12.8 mmol/L (7-16); Blood Urea Nitrogen 29 mg/dL (7-18); Calcium 9.1 mg/dL (8.5-10.1); Carbon Dioxide 30 mmol/L (21-32); Chloride 94 mmol/L (98-108); Estimated Glomerular Filt Rate 50; Glucose 387 mg/dL (70-99); Osmolality Calculated 297 mOsm/kg (285-295); Potassium 3.8 mmol/L (3.5-5.1); Sodium 133 mmol/L (136-145)
[2020-01-16] MEDS: ENOXAPARIN 40 MG/0.4 ML SYRINGE SUB-Q (08:16)
[2020-01-16] MEDS: predniSONE 20 MG TABLET 40 MG PO (08:17)
[2020-01-16] MEDS: AMLODIPINE BESYLATE 5 MG TABLET 10 MG PO (08:18)
[2020-01-16] MEDS: ASPIRIN 325 MG ENTERIC TABLET PO (08:19)
[2020-01-16] MEDS: AMOXICILLIN/CLAVULANATE K 875-125 MG TAB 1 TABLET PO ×2 (08:19→20:40)
[2020-01-16] MEDS: ATORVASTATIN 10 MG TABLET 40 MG PO (08:19)
[2020-01-16] MEDS: FUROSEMIDE 40 MG TABLET PO (08:20)
[2020-01-16] MEDS: FERROUS SULFATE 324 MG TABLET PO (08:20)
[2020-01-16] MEDS: BENZONATATE 100 MG CAPSULE 200 MG PO (08:20)
[2020-01-16] MEDS: METOPROLOL TARTRATE 50 MG TAB PO ×2 (08:21→20:41)
[2020-01-16] MEDS: lisinopriL 20 MG TABLET 40 MG PO (08:21)
[2020-01-16] MEDS: hydrALAZINE HCL 25 MG TABLET 50 MG PO ×4 (08:21→20:41)
[2020-01-16] MEDS: PANTOPRAZOLE 40 MG TABLET PO (08:21)
[2020-01-16 11:40] LABS: Glucose Point of Care 142 (65-105)
--- NOTE | 2020-01-16 15:42 | PM.EVENT ---
Event Note Event Note Event Note: It was noted that the patient still had her david in her right knee. Her surgery was on December 15, approximately a month ago. I called her orthopedic surgeon's office today, Dr. Marquise aj of [facility] in [facility]. Their phone #[phone]. Their fax number is [phone] I spoke with his nurse who requested that we get a four view are three-view x-ray of the right knee, I have ordered that. Dr. aj would like to see the patient 1 week after discharge, I have put an order in to the care coordination office for that. Her knee looks fine, no redness, no swelling, no open areas. Patient is participating with PT and OT sessions willingly and easily with no visible signs of pain, and no complaints of pain during her sessions. I have seen the patient myself multiple times in the hallways of the hospital ambulating with her walker and her therapist.
[2020-01-16 16:00] VITALS: BP 150/62; PULSE 77; RESP 16; TEMP 36.6; O2SAT 95
--- NOTE | 2020-01-16 16:02 | PC.NURSE ---
NURSE PRACTITIONER IN ROOM TO REMOVE ROLAND.
[2020-01-16 16:30] LABS: Glucose Point of Care > 450 (65-105)
[2020-01-16 16:39] LABS: Glucose Point of Care > 450 (65-105)
--- NOTE | 2020-01-16 17:54 | PC.NURSE ---
AGURI PANIAGUA MADE AWARE OF 1HOUR REPEAT FSBS >500. INFORMED THAT PATIENT HAS JUST EATEN SUPPER WELL.
[2020-01-16 17:55] LABS: Glucose Point of Care > 450 (65-105)
[2020-01-16] MEDS: BENZOCAINE/MENTHOL (*BKC) 18 EA LOZENGE 1 LOZENGE PO ×2 (19:17→21:39)
[2020-01-16 20:41] VITALS: PULSE 72
[2020-01-16] MEDS: INSULIN GLARGINE (*BKC) 100 UNITS/ML 45 UNITS SUB-Q (20:43)
--- NOTE | 2020-01-16 21:00 | PC.NURSE ---
Dr Winkler returned call and gave orders to give pt 10 units of Insulin now and he will change sliding scale to AC and HS
--- NOTE | 2020-01-16 21:00 | PC.NURSE ---
NOTIFIED CHARGE NURSE OF PATIENT FSBS >500, CALL PLACED TO MD. PT TALKING ON PHONE, NO DISTRESS, NO S/S HYPERGLYCEMIA, ITS ALWAYS HIGH AT NIGHT, I KNOW MY BODY, IN THE MORNING IT WILL BE 50. N.O. REC'D FOR 10 UNITS HUMALOG X1 NOW AND SSI INCREASED FROM TIDWM TO ACHS.
[2020-01-17] VITALS: BP 136/47; PULSE 64; RESP 20; TEMP 36.4; O2SAT 94
[2020-01-17 00:17] LABS: Vancomycin Trough 16.6 ug/mL (10.0-15.0)
[2020-01-17 01:04] LABS: Glucose Point of Care > 450 (65-105)
[2020-01-17 05:12] LABS: Estimated Glomerular Filt Rate 48
[2020-01-17] MEDS: ALBUTEROL SULFATE (*SP) INHALER 2 PUFF INHALATION ×4 (06:23→21:44)
[2020-01-17 06:24] LABS: Glucose Point of Care 369 (65-105)
[2020-01-17 07:20] VITALS: BP 148/59; PULSE 72; RESP 18; TEMP 36.8; O2SAT 97
--- NOTE | 2020-01-17 09:15 | PC.NURSE ---
PT in room to work with yuni. Walking with patient in hallway.
[2020-01-17] MEDS: ATORVASTATIN 10 MG TABLET 40 MG PO (09:35)
[2020-01-17] MEDS: AMOXICILLIN/CLAVULANATE K 875-125 MG TAB 1 TABLET PO ×2 (09:35→21:44)
[2020-01-17] MEDS: FERROUS SULFATE 324 MG TABLET PO (09:36)
[2020-01-17] MEDS: AMLODIPINE BESYLATE 5 MG TABLET 10 MG PO (09:36)
[2020-01-17] MEDS: metFORMIN HCL 500 MG TABLET PO (09:37)
[2020-01-17] MEDS: FUROSEMIDE 40 MG TABLET PO (09:37)
[2020-01-17] MEDS: hydrALAZINE HCL 25 MG TABLET 50 MG PO ×4 (09:38→21:09)
[2020-01-17] MEDS: ASPIRIN 325 MG ENTERIC TABLET PO (09:38)
[2020-01-17 09:39] VITALS: PULSE 76
[2020-01-17] MEDS: METOPROLOL TARTRATE 50 MG TAB PO ×2 (09:39→21:44)
[2020-01-17] MEDS: PANTOPRAZOLE 40 MG TABLET PO (09:39)
[2020-01-17] MEDS: ENOXAPARIN 40 MG/0.4 ML SYRINGE SUB-Q (09:39)
[2020-01-17] MEDS: lisinopriL 20 MG TABLET 40 MG PO (09:40)
[2020-01-17 10:03] LABS: Basophils Absolute Auto 0.02 K/mm3 (0.00-0.10); Basophils Percent Auto 0.3 % (0.0-1.0); Eosinophils Percent Auto 1.5 % (1.0-6.0); Hematocrit 33.1 % (35.0-49.0); Immature Granulocyte Absolute 0.06 K/mm3 (0.00-0.00); Immature Granulocyte Percent A 0.9 % (0.0-0.0); Lymphocytes Absolute Auto 1.34 K/mm3 (1.10-4.50); Lymphocytes Percent Auto 20.6 % (18.0-42.0); Mean Corpuscular HGB Conc 30.2 g/dL (32.0-36.0); Mean Corpuscular Hemoglobin 26.2 pg (27.0-31.0); Mean Corpuscular Volume 86.6 fL (78.0-102.0); Mean Platelet Volume 10.8 fl (9.2-11.8); Monocytes Absolute Auto 0.53 K/mm3 (0.10-0.90); Monocytes Percent Auto 8.2 % (2.0-11.0); Neutrophils Absolute Auto 4.5 K/mm3 (1.7-7.2); Neutrophils Percent Auto 68.5 % (50.0-70.0); Platelet Count Result 341 K/mm3 (150-420); Red Blood Count 3.82 M/mm3 (4.20-5.40); Red Cell Distribution Width 17.8 % (11.6-14.4); White Blood Count 6.5 K/mm3 (4.8-10.8)
[2020-01-17 10:20] LABS: Hemoglobin A1C 8.3 % (<5.7)
[2020-01-17 10:23] LABS: BNP 259 pg/mL (0-100)
[2020-01-17 10:33] LABS: Alanine Aminotransferase 13 U/L (14-59); Albumin Level 3.2 g/dL (3.4-5.0); Alkaline Phosphatase 76 U/L (46-116); Anion Gap 13.7 mmol/L (7-16); Aspartate Amino Transferase 9 U/L (15-37); Bilirubin,Total 0.2 mg/dL (0.00-1.00); Blood Urea Nitrogen 30 mg/dL (7-18); Calcium 8.9 mg/dL (8.5-10.1); Carbon Dioxide 29 mmol/L (21-32); Chloride 95 mmol/L (98-108); Estimated Glomerular Filt Rate 50; Glucose 379 mg/dL (70-99); Magnesium 1.7 mg/dL (1.8-2.4); Osmolality Calculated 300 mOsm/kg (285-295); Potassium 3.7 mmol/L (3.5-5.1); Sodium 134 mmol/L (136-145); Total Protein 7.4 g/dL (6.4-8.2)
[2020-01-17 10:35] LABS: Thyroid Stimulating Hormone Reflex 3.05 u/IU/mL (0.36-3.74)
[2020-01-17] MEDS: ACETAMINOPHEN 325 MG TABLET 650 MG PO (11:48)
[2020-01-17 12:04] LABS: Glucose Point of Care 267 (65-105)
[2020-01-17] MEDS: CHOLECALCIFEROL 1,000 UNIT TABLET 1000 UNITS PO (12:42)
[2020-01-17] MEDS: FUROSEMIDE INJ 40 MG/4 ML VIAL 20 MG IV PUSH (12:42)
[2020-01-17] MEDS: MAGNESIUM OXIDE 400 MG TABLET PO ×2 (12:42→18:27)
--- NOTE | 2020-01-17 15:01 | PM.IMPN ---
Progress Note: A&P Assessment and Plan (1) Weakness: Code(s): R53.1 - Weakness Status: Acute Assessment and Plan: Continuing restart home medications as able PT OT ordered may participate in therapeutic activities encourage sleep hygiene, staying awake throughout the day, sleeping at night encourage patient to continue and improve independence in a safe and progressive manner (2) COVID-19 virus infection: Code(s): U07.1 - COVID-19 Status: Acute Assessment and Plan: discontinued airborne isolation as she has been fever free for greater than 20 days, her white count is normal, her cough is controlled, and her chest x-ray is clear for pneumonia now albuterol inhaler scheduled p.r.n. vital signs and pulse ox checked daily labs ordered at admission, including CBC, CMP, vitamin-D, TSH, A1c, CRP. labs repeated today and found to be stable. 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 she is to follow-up with [place], [place] Orthopedic surgeon Dr. Estrada regarding orthopedic questions and dressing changes PT OT evaluation and treatment Incision is clean and dry, to be left open to air. elevate and ICE lower extremities throughout the day to help improve edema and minimize swelling apply ice to the right knee or right lower extremity as needed to reduce swelling and improved pain control apply James hose stockings knee-highs daily black wrap-around brace in place for support to right knee (4) Type 2 diabetes mellitus: Code(s): E11.9 - Type 2 diabetes mellitus without complications Status: Acute Assessment and Plan: high sliding scale insulin with hypoglycemia p.r.n. in place [facility] increased her Lantus up to 38 units at discharge. I have since increased her Lantus to 45 units, because her glucose checks have been greater than 300 since her rehab swing admission. Her A1c has gone up point in the last 2 weeks, she is now 8.6 I have restarted her metformin, she was on 500 b.i.d. at home; but due to her significantly elevated glucose levels in the hospital, I have made her metformin 1000 b.i.d. Continue diabetic consistent carb diet (5) Diastolic heart failure: Code(s): I50.30 - Unspecified diastolic (congestive) heart failure Status: Acute Assessment and Plan: continue her home Lasix dose of 40 mg p.o. daily her BNP has been increaseing, on January 14 that was 178, today it was 259 she also has increased wheezing with increased evidence of fluid retention so I have changed her daily Lasix from 40 mg p.o. daily up to 60 mg p.o. daily hydralazine was recently added to achieve better blood pressure control at [facility] also completed the echo showing moderate LVH she had a recent CVA, will continue her daily aspirin of 325 mg strict I/Os daily weights Subjective Date/time seen: 01/17/20 15:01 Montse is been doing well she has been participating in therapy very willingly. Her knee does seem to improve with decreased pain and decreased swelling when she remembers to ice it throughout the day. I did receive her read x-ray results on her right knee today. There is some concern about osteopenia at the tibial tuberosity as well as a small area of gas identified anteriorly to the patellar tendon, likely persistent infection and/or concern for osteomyelitis. We will continue her IV vancomycin as well as
[2020-01-17 15:30] VITALS: BP 114/40; PULSE 79; RESP 18; TEMP 36.7; O2SAT 99
[2020-01-17 17:15] LABS: Glucose Point of Care 104 (65-105)
[2020-01-17] MEDS: metFORMIN HCL 500 MG TABLET 1000 MG PO (18:27)
[2020-01-17] MEDS: INSULIN GLARGINE (*BKC) 100 UNITS/ML 30 UNITS SUB-Q (21:09)
[2020-01-17 21:44] VITALS: PULSE 74
[2020-01-17] MEDS: VANCOMYCIN 500 MG/NS 100 ML 500 MG/100 ML BAG 200 MG IVPB (21:45)
[2020-01-17 21:55] LABS: Glucose Point of Care 224 (65-105)
[2020-01-18] VITALS: BP 131/47; PULSE 62; RESP 14; TEMP 36.6; O2SAT 92
[2020-01-18 00:22] LABS: Glucose Point of Care 198 (65-105)
[2020-01-18 04:03] LABS: Glucose Point of Care 85 (65-105)
[2020-01-18] MEDS: ALBUTEROL SULFATE (*SP) INHALER 2 PUFF INHALATION ×4 (05:40→21:16)
[2020-01-18 07:30] VITALS: BP 150/67; PULSE 78; RESP 18; TEMP 37.1; O2SAT 96
[2020-01-18 07:59] LABS: Glucose Point of Care 122 (65-105)
[2020-01-18] MEDS: CHOLECALCIFEROL 1,000 UNIT TABLET 5000 UNITS PO (09:09)
[2020-01-18] MEDS: VANCOMYCIN 500 MG/NS 100 ML 500 MG/100 ML BAG 200 MG IVPB ×2 (09:09→21:03)
[2020-01-18 09:10] VITALS: PULSE 76
[2020-01-18] MEDS: METOPROLOL TARTRATE 50 MG TAB PO ×2 (09:10→21:02)
[2020-01-18] MEDS: lisinopriL 20 MG TABLET 40 MG PO (09:10)
[2020-01-18] MEDS: hydrALAZINE HCL 25 MG TABLET 50 MG PO ×4 (09:11→21:02)
[2020-01-18] MEDS: MAGNESIUM OXIDE 400 MG TABLET PO ×2 (09:11→17:13)
[2020-01-18] MEDS: FUROSEMIDE 40 MG TABLET 60 MG PO (09:11)
[2020-01-18] MEDS: PANTOPRAZOLE 40 MG TABLET PO (09:11)
[2020-01-18] MEDS: FERROUS SULFATE 324 MG TABLET PO (09:11)
[2020-01-18] MEDS: AMOXICILLIN/CLAVULANATE K 875-125 MG TAB 1 TABLET PO ×2 (09:11→21:01)
[2020-01-18] MEDS: ASPIRIN 325 MG ENTERIC TABLET PO (09:11)
[2020-01-18] MEDS: ATORVASTATIN 10 MG TABLET 40 MG PO (09:12)
[2020-01-18] MEDS: ENOXAPARIN 40 MG/0.4 ML SYRINGE SUB-Q (09:12)
[2020-01-18] MEDS: AMLODIPINE BESYLATE 5 MG TABLET 10 MG PO (09:12)
[2020-01-18 11:47] LABS: Glucose Point of Care 191 (65-105)
[2020-01-18 12:33] LABS: CRP 0.4 mg/dL (0.0-0.9)
[2020-01-18 13:22] LABS: Erythrocyte Sedimentation Rate 44 mm/hr (0-20)
--- NOTE | 2020-01-18 13:28 | PM.IMPN ---
Progress Note: A&P Assessment and Plan (1) Weakness: Code(s): R53.1 - Weakness <Amairani Tejeda NP - Last Filed: 01/18/20 15:03> Status: Acute <Amairani Tejeda NP - Last Filed: 01/18/20 15:03> Assessment and Plan: Continuing restart home medications as able PT OT ordered may participate in therapeutic activities encourage sleep hygiene, staying awake throughout the day, sleeping at night encourage patient to continue and improve independence in a safe and progressive manner <Amairani Tejeda NP - Last Filed: 01/18/20 15:03> (2) COVID-19 virus infection: Code(s): U07.1 - COVID-19 <Amairani Tejeda NP - Last Filed: 01/18/20 15:03> Status: Acute <Amairani Tejeda NP - Last Filed: 01/18/20 15:03> Assessment and Plan: discontinued airborne isolation as she has been fever free for greater than 20 days, her white count is normal, her cough is controlled, and her chest x-ray is clear for pneumonia now albuterol inhaler scheduled p.r.n. vital signs and pulse ox checked daily labs ordered at admission, including CBC, CMP, vitamin-D, TSH, A1c, CRP. labs repeated today and found to be stable. she is currently a full code and according to [facility] note her sister Mumtaz Soto is to make decisions for her if she is unable to make them on her own found to be COVID positive in early December. on January 13, her coughing and congestion returned and she was started on Augmentin oral, put a stop date in for 10 day course to complete around January 24. Improved since January 13, with little to no coughing, heard 1-2 coughing episodes yesterday and none today. 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 PT OT evaluation and treatment Her Orthopedic Surgeon Dr. Marquise Estrada requested that we track her ESR and CRP. Her ESR today was 44, her CRP was 2.9 on 01/05 and 0.4 today. Incision is clean and dry, to be left open to air. elevate and ICE lower extremities throughout the day to help improve edema and minimize swelling apply ice to the right knee or right lower extremity as needed to reduce swelling and improved pain control apply James hose stockings knee-highs daily black wrap-around brace in place for support to right knee she is to follow-up with [place], [place] Orthopedic surgeon Dr. Estrada regarding orthopedic questions VERY IMPORTANT TO KEEP GLUCOSE CONTROLLED FOR INFECTION TO HEAL gas pocket noted on the x-rays, examined by Dr. Estrada, He stated that she has had multiple, at least 4, surgeries on that knee are ready, including replacing the antibiotic spacer twice, and he is in no hurry to take her back to surgery for an I&D. He would prefer to see the patient in his clinic next week for a follow-up visit, when he plans to complete a needle biopsy himself of that area including the gas pocket or pus pocket. I have spoken with the patient and the ostomy care nurse Marina of these plans and the appointment details, so that they can have transportation arranged and all appropriate people have been informed. Her appointment is on Saturday, january 25, 2020 at 1:30pm (she is to arrive around 1pm) with her Orthopedic Surgeon Dr. Marquise Estrada of the [facility], phone number is [phone] located at [address] [facility] [address]. <Amairani Tejeda, [employer] - Last Filed: 01/18/20 15:03> (4) Type 2 diabetes mellitus:
--- NOTE | 2020-01-18 14:30 | PCPTNOTE ---
Entered patients room and patient did not want to participate due to pain and tired. Educated patient on importance of therapy but patient wants to hold for the pm. Will resume on weekend. [place]
[2020-01-18 15:50] VITALS: BP 133/35; PULSE 74; RESP 18; TEMP 37.2; O2SAT 99
[2020-01-18 16:58] LABS: Glucose Point of Care 280 (65-105)
[2020-01-18] MEDS: metFORMIN HCL 500 MG TABLET 1000 MG PO (17:12)
[2020-01-18 21:02] VITALS: PULSE 82
[2020-01-18 21:27] LABS: Glucose Point of Care 315 (65-105)
[2020-01-19] VITALS: BP 119/44; PULSE 76; RESP 18; TEMP 37.1; O2SAT 96
[2020-01-19 00:07] LABS: Glucose Point of Care 232 (65-105)
--- NOTE | 2020-01-19 01:10 | PC.NURSE ---
Patient appears to be sleeping by the rise and fall of her chest. Respirations even and unlabored. No distress noted. Call light in reach.
--- NOTE | 2020-01-19 02:00 | PC.NURSE ---
Patient appears to be sleeping by the rise and fall of her chest. Respirations even and unlabored. No distress noted. Call light in reach.
[2020-01-19 04:03] LABS: Glucose Point of Care 250 (65-105)
[2020-01-19] MEDS: ALBUTEROL SULFATE (*SP) INHALER 2 PUFF INHALATION ×4 (05:47→20:43)
[2020-01-19 07:57] LABS: Glucose Point of Care 267 (65-105)
[2020-01-19 08:00] VITALS: BP 152/51; PULSE 77; TEMP 37.1; O2SAT 18
[2020-01-19 08:46] LABS: Vancomycin Trough 17.9 ug/mL (10.0-15.0)
[2020-01-19] MEDS: ENOXAPARIN 40 MG/0.4 ML SYRINGE SUB-Q (09:04)
[2020-01-19] MEDS: CHOLECALCIFEROL 1,000 UNIT TABLET 5000 UNITS PO (09:05)
[2020-01-19] MEDS: AMOXICILLIN/CLAVULANATE K 875-125 MG TAB 1 TABLET PO ×2 (09:06→20:42)
[2020-01-19] MEDS: lisinopriL 20 MG TABLET 40 MG PO (09:07)
[2020-01-19] MEDS: FUROSEMIDE 40 MG TABLET 60 MG PO (09:07)
[2020-01-19] MEDS: FERROUS SULFATE 324 MG TABLET PO (09:08)
[2020-01-19] MEDS: ASPIRIN 325 MG ENTERIC TABLET PO (09:08)
[2020-01-19] MEDS: MAGNESIUM OXIDE 400 MG TABLET PO ×2 (09:08→16:43)
[2020-01-19] MEDS: ATORVASTATIN 10 MG TABLET 40 MG PO (09:08)
[2020-01-19 09:09] VITALS: PULSE 92
[2020-01-19] MEDS: AMLODIPINE BESYLATE 5 MG TABLET 10 MG PO (09:09)
[2020-01-19] MEDS: METOPROLOL TARTRATE 50 MG TAB PO ×2 (09:09→20:41)
[2020-01-19] MEDS: hydrALAZINE HCL 25 MG TABLET 50 MG PO ×4 (09:09→20:42)
[2020-01-19] MEDS: PANTOPRAZOLE 40 MG TABLET PO (09:10)
[2020-01-19] MEDS: VANCOMYCIN 500 MG/NS 100 ML 500 MG/100 ML BAG 200 MG IVPB ×2 (11:06→20:42)
[2020-01-19 12:03] LABS: Glucose Point of Care 341 (65-105)
[2020-01-19 16:00] VITALS: BP 121/55; PULSE 85; RESP 18; TEMP 37.2; O2SAT 96
[2020-01-19 16:35] LABS: Glucose Point of Care 267 (65-105)
[2020-01-19] MEDS: metFORMIN HCL 500 MG TABLET PO (16:43)
[2020-01-19 20:41] LABS: Glucose Point of Care 287 (65-105)
[2020-01-19] MEDS: INSULIN GLARGINE (*BKC) 100 UNITS/ML 26 UNITS SUB-Q (20:43)
--- NOTE | 2020-01-19 22:11 | PM.EVENT ---
Event Note Event Note Event Note: Amairani Raine's 01/17 note reviewed. I agree with assessment and plan. Continue vancomycin and Augmentin BID. One month post-op knee X ray showed a small focus of gas anterior to the patellar tendon. Dr. Estrada consulted. Will see patient on 01/24. On exam the knee is not red. There is no patellar swelling, crepitation, or tenderness. Knee is extended with only a few degrees of active flexion. There is no evidence of active infection.
[2020-01-20] VITALS: BP 137/52; PULSE 68; RESP 16; TEMP 36.6; O2SAT 94
[2020-01-20 08:00] VITALS: BP 135/74; PULSE 78; RESP 16; TEMP 37.1; O2SAT 96
[2020-01-20 08:03] LABS: Glucose Point of Care 193 (65-105)
[2020-01-20] MEDS: ENOXAPARIN 40 MG/0.4 ML SYRINGE SUB-Q (08:36)
[2020-01-20] MEDS: CHOLECALCIFEROL 1,000 UNIT TABLET 5000 UNITS PO (08:36)
[2020-01-20] MEDS: AMOXICILLIN/CLAVULANATE K 875-125 MG TAB 1 TABLET PO ×2 (08:37→21:06)
[2020-01-20] MEDS: PANTOPRAZOLE 40 MG TABLET PO (08:37)
[2020-01-20] MEDS: MAGNESIUM OXIDE 400 MG TABLET PO ×2 (08:37→16:27)
[2020-01-20] MEDS: ASPIRIN 325 MG ENTERIC TABLET PO (08:37)
[2020-01-20] MEDS: FUROSEMIDE 40 MG TABLET 60 MG PO (08:39)
[2020-01-20] MEDS: lisinopriL 20 MG TABLET 40 MG PO (08:39)
[2020-01-20] MEDS: hydrALAZINE HCL 25 MG TABLET 50 MG PO ×4 (08:40→21:07)
[2020-01-20] MEDS: ATORVASTATIN 10 MG TABLET 40 MG PO (08:40)
[2020-01-20 08:41] VITALS: PULSE 78
[2020-01-20] MEDS: METOPROLOL TARTRATE 50 MG TAB PO ×2 (08:41→21:07)
[2020-01-20] MEDS: metFORMIN HCL 500 MG TABLET PO ×2 (08:41→16:27)
[2020-01-20] MEDS: FERROUS SULFATE 324 MG TABLET PO (08:41)
[2020-01-20] MEDS: AMLODIPINE BESYLATE 5 MG TABLET 10 MG PO (08:41)
[2020-01-20] MEDS: VANCOMYCIN 500 MG/NS 100 ML 500 MG/100 ML BAG 200 MG IVPB (08:45)
[2020-01-20] MEDS: ALBUTEROL SULFATE (*SP) INHALER 2 PUFF INHALATION ×2 (10:56→14:16)
[2020-01-20 11:21] LABS: Glucose Point of Care 381 (65-105)
[2020-01-20 16:00] VITALS: BP 136/74; PULSE 84; RESP 18; TEMP 37.1; O2SAT 94
[2020-01-20 16:11] LABS: Glucose Point of Care 272 (65-105)
[2020-01-20] MEDS: VANCOMYCIN 500 MG/NS 100 ML 500 MG/100 ML BAG IVPB (21:07)
[2020-01-20] MEDS: INSULIN GLARGINE (*BKC) 100 UNITS/ML 26 UNITS SUB-Q (21:31)
[2020-01-20 21:37] LABS: Glucose Point of Care 165 (65-105)
[2020-01-21] VITALS: BP 122/48; PULSE 72; RESP 14; TEMP 36.9; O2SAT 96
[2020-01-21 05:36] LABS: Hematocrit 32.5 % (35.0-49.0); Hemoglobin 9.9 g/dL (12.0-15.0); Mean Corpuscular HGB Conc 30.5 g/dL (32.0-36.0); Mean Corpuscular Hemoglobin 26.5 pg (27.0-31.0); Mean Corpuscular Volume 87.1 fL (78.0-102.0); Mean Platelet Volume 10.6 fl (9.2-11.8); Platelet Count Result 283 K/mm3 (150-420); Red Blood Count 3.73 M/mm3 (4.20-5.40); Red Cell Distribution Width 17.4 % (11.6-14.4); White Blood Count 7.1 K/mm3 (4.8-10.8)
[2020-01-21 05:46] LABS: CRP 0.9 mg/dL (0.0-0.9); Estimated Glomerular Filt Rate 60
[2020-01-21 05:53] LABS: Band Neutrophils Percent 0 % (0-6); Lymphocytes Absolute Manual 0.92 K/mm3 (1.1-4.5); Lymphocytes Percent Manual 13 % (18-44); Monocytes Absolute Manual 0.42 K/mm3 (0.1-0.90); Monocytes Percent Manual 6 % (3-9); Neutrophils Absolute Manual 5.04 K/mm3 (1.7-7.2); Neutrophils Percent Manual 71 % (46-73); Total Cells Counted 100
[2020-01-21 05:54] LABS: Basophils Percent Manual 0 % (0-1); Eosinophils Absolute Manual 0.71 K/mm3 (0.02-0.5); Eosinophils Percent Manual 10 % (1-6); Platelet Estimate Adequate (Adequate)
[2020-01-21 06:36] LABS: Erythrocyte Sedimentation Rate 51 mm/hr (0-20)
[2020-01-21 07:26] LABS: Glucose Point of Care 133 (65-105)
[2020-01-21 07:51] VITALS: BP 123/59; PULSE 72; RESP 14; TEMP 36.9; O2SAT 96
[2020-01-21] MEDS: metFORMIN HCL 500 MG TABLET PO ×2 (08:21→16:40)
[2020-01-21] MEDS: ASPIRIN 325 MG ENTERIC TABLET PO (08:22)
[2020-01-21] MEDS: ATORVASTATIN 10 MG TABLET 40 MG PO (08:22)
[2020-01-21] MEDS: AMLODIPINE BESYLATE 5 MG TABLET 10 MG PO (08:22)
[2020-01-21] MEDS: AMOXICILLIN/CLAVULANATE K 875-125 MG TAB 1 TABLET PO ×2 (08:22→21:06)
[2020-01-21] MEDS: FUROSEMIDE 40 MG TABLET 60 MG PO (08:23)
[2020-01-21] MEDS: FERROUS SULFATE 324 MG TABLET PO (08:23)
[2020-01-21] MEDS: ENOXAPARIN 40 MG/0.4 ML SYRINGE SUB-Q (08:23)
[2020-01-21] MEDS: CHOLECALCIFEROL 1,000 UNIT TABLET 5000 UNITS PO (08:23)
[2020-01-21] MEDS: lisinopriL 20 MG TABLET 40 MG PO (08:24)
[2020-01-21] MEDS: hydrALAZINE HCL 25 MG TABLET 50 MG PO ×4 (08:24→21:07)
[2020-01-21] MEDS: MAGNESIUM OXIDE 400 MG TABLET PO ×2 (08:25→16:42)
[2020-01-21] MEDS: PANTOPRAZOLE 40 MG TABLET PO (08:25)
[2020-01-21] MEDS: METOPROLOL TARTRATE 50 MG TAB PO ×2 (08:25→21:07)
[2020-01-21] MEDS: VANCOMYCIN 500 MG/NS 100 ML 500 MG/100 ML BAG IVPB (08:30)
[2020-01-21] MEDS: ALBUTEROL SULFATE (*SP) INHALER 2 PUFF INHALATION ×3 (09:36→21:00)
[2020-01-21 11:17] LABS: Glucose Point of Care 224 (65-105)
[2020-01-21 16:00] VITALS: BP 143/57; PULSE 84; RESP 16; TEMP 36.8; O2SAT 98
[2020-01-21 16:55] LABS: Glucose Point of Care 197 (65-105)
[2020-01-21 21:07] VITALS: PULSE 78
[2020-01-21] MEDS: VANCOMYCIN 500 MG/NS 100 ML 500 MG/100 ML BAG 100 MG IVPB (21:08)
[2020-01-21] MEDS: INSULIN GLARGINE (*BKC) 100 UNITS/ML 26 UNITS SUB-Q (21:11)
[2020-01-21 21:18] LABS: Glucose Point of Care 258 (65-105)
[2020-01-21] MEDS: GABAPENTIN 400 MG CAPSULE PO (21:25)
[2020-01-21] MEDS: BENZOCAINE/MENTHOL (*BKC) 18 EA LOZENGE 1 LOZENGE PO (21:26)
[2020-01-22] VITALS: BP 123/45; PULSE 84; RESP 16; TEMP 37.2; O2SAT 94
[2020-01-22] MEDS: ALBUTEROL SULFATE (*SP) INHALER 2 PUFF INHALATION (05:49)
[2020-01-22 07:34] VITALS: BP 105/57; PULSE 71; RESP 18; TEMP 37.1; O2SAT 95
[2020-01-22 07:52] LABS: Glucose Point of Care 155 (65-105)
--- NOTE | 2020-01-22 08:06 | PC.NURSE ---
In chair eating breakfast, denies needs, loose occassional cough noted
[2020-01-22] MEDS: ENOXAPARIN 40 MG/0.4 ML SYRINGE SUB-Q (08:44)
[2020-01-22] MEDS: AMOXICILLIN/CLAVULANATE K 875-125 MG TAB 1 TABLET PO ×2 (08:45→20:57)
[2020-01-22] MEDS: CHOLECALCIFEROL 1,000 UNIT TABLET 5000 UNITS PO (08:45)
[2020-01-22 08:46] VITALS: PULSE 71
[2020-01-22] MEDS: METOPROLOL TARTRATE 50 MG TAB PO ×2 (08:46→20:57)
[2020-01-22] MEDS: ATORVASTATIN 10 MG TABLET 40 MG PO (08:46)
[2020-01-22] MEDS: FUROSEMIDE 40 MG TABLET 60 MG PO (08:48)
[2020-01-22] MEDS: MAGNESIUM OXIDE 400 MG TABLET PO ×2 (08:48→16:46)
[2020-01-22] MEDS: metFORMIN HCL 500 MG TABLET 1000 MG PO (08:49)
[2020-01-22] MEDS: ASPIRIN 325 MG ENTERIC TABLET PO (08:49)
[2020-01-22] MEDS: lisinopriL 20 MG TABLET 40 MG PO (08:49)
[2020-01-22] MEDS: FERROUS SULFATE 324 MG TABLET PO (08:49)
[2020-01-22] MEDS: PANTOPRAZOLE 40 MG TABLET PO (08:50)
[2020-01-22] MEDS: AMLODIPINE BESYLATE 5 MG TABLET 10 MG PO (08:50)
[2020-01-22] MEDS: hydrALAZINE HCL 25 MG TABLET 50 MG PO ×4 (08:51→20:56)
[2020-01-22] MEDS: VANCOMYCIN 500 MG/NS 100 ML 500 MG/100 ML BAG 100 MG IVPB ×2 (09:47→21:01)
--- NOTE | 2020-01-22 09:56 | PC.NURSE ---
Walked in woods with therapy, immobilizer for right knee in place, incision to right knee healing well, no ice at this time, states maybe later, call light inr each
[2020-01-22 11:44] LABS: Glucose Point of Care 303 (65-105)
--- NOTE | 2020-01-22 14:32 | PC.NURSE ---
In chair with legs elevated, denies needs at this time, using commode unassisted as needed, personal items in reach of patient
[2020-01-22 15:35] VITALS: BP 116/51; PULSE 71; RESP 18; TEMP 37.1; O2SAT 95
[2020-01-22 16:39] LABS: Glucose Point of Care 149 (65-105)
[2020-01-22] MEDS: metFORMIN HCL 500 MG TABLET PO (16:46)
--- NOTE | 2020-01-22 18:24 | PC.NURSE ---
In chair with legs elevated, no change in appearance of right knee incision, immobilizer in place when up, using BSC and tolerated well, personal items and call light in reach
[2020-01-22 20:57] VITALS: PULSE 76
[2020-01-22] MEDS: INSULIN GLARGINE (*BKC) 100 UNITS/ML 26 UNITS SUB-Q (21:12)
[2020-01-22 21:16] LABS: Glucose Point of Care 299 (65-105)
[2020-01-23] VITALS: BP 134/76; PULSE 72; RESP 20; TEMP 36.2; O2SAT 98
[2020-01-23 07:16] VITALS: BP 136/40; PULSE 70; RESP 18; TEMP 36.8; O2SAT 95
[2020-01-23 07:31] LABS: Glucose Point of Care 149 (65-105)
--- NOTE | 2020-01-23 08:06 | PC.NURSE ---
Up in chair eating breakfast
[2020-01-23] MEDS: CHOLECALCIFEROL 1,000 UNIT TABLET 5000 UNITS PO (08:41)
[2020-01-23] MEDS: AMOXICILLIN/CLAVULANATE K 875-125 MG TAB 1 TABLET PO ×2 (08:42→21:31)
[2020-01-23] MEDS: lisinopriL 20 MG TABLET 40 MG PO (08:42)
[2020-01-23] MEDS: metFORMIN HCL 500 MG TABLET 1000 MG PO (08:42)
[2020-01-23] MEDS: PANTOPRAZOLE 40 MG TABLET PO (08:42)
[2020-01-23] MEDS: ASPIRIN 325 MG ENTERIC TABLET PO (08:43)
[2020-01-23] MEDS: ATORVASTATIN 10 MG TABLET 40 MG PO (08:43)
[2020-01-23] MEDS: MAGNESIUM OXIDE 400 MG TABLET PO ×2 (08:44→16:50)
[2020-01-23] MEDS: AMLODIPINE BESYLATE 5 MG TABLET 10 MG PO (08:44)
[2020-01-23] MEDS: hydrALAZINE HCL 25 MG TABLET 50 MG PO ×4 (08:44→21:31)
[2020-01-23 08:45] VITALS: PULSE 72
[2020-01-23] MEDS: FUROSEMIDE 40 MG TABLET 60 MG PO (08:45)
[2020-01-23] MEDS: FERROUS SULFATE 324 MG TABLET PO (08:45)
[2020-01-23] MEDS: METOPROLOL TARTRATE 50 MG TAB PO ×2 (08:45→21:31)
--- NOTE | 2020-01-23 09:22 | PC.NURSE ---
Up in woods walking with therapy, tolerating activity well
[2020-01-23 09:26] LABS: Vancomycin Trough 13.7 ug/mL (10.0-15.0)
[2020-01-23] MEDS: VANCOMYCIN HCL 750 MG in SODIUM CHLORIDE 0.9% IV 250 ML 250 MG IVPB ×2 (10:36→21:44)
[2020-01-23] MEDS: ALBUTEROL SULFATE (*SP) INHALER 2 PUFF INHALATION ×2 (10:42→14:43)
--- NOTE | 2020-01-23 11:08 | P.PNIM_ITS ---
Progress Note: A&P Assessment and Plan (1) Weakness: Code(s): R53.1 - Weakness <DERICK Car - Last Filed: 01/23/20 11:34> Status: Acute <DERICK Car - Last Filed: 01/23/20 11:34> Assessment and Plan: * Exhibit tolerance during physical activity as evidenced by a normal fluctuation of vital signs during physical activity. * Patient will be ability to perform required activities of daily living. * Provide appropriate nutrition for healing and strength. * Use appropriate to prevent falls. Continue physical therapy/occupational therapy. <DERICK Car - Last Filed: 01/23/20 11:34> (2) COVID-19 virus infection: Code(s): U07.1 - COVID-19 <DERICK Car - Last Filed: 01/23/20 11:34> Status: Acute <DERICK Car - Last Filed: 01/23/20 11:34> Assessment and Plan: * resolved * discontinued airborne isolation * found to be COVID positive in early December. 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 * PT OT evaluation and treatment * CRP and ESR not ordered yesterday we ordered today for tomorrow morning * continue use of leg brace * knee x-ray indicates - Localized osteopenia at the tibial tuberosity. Small focus of gas anterior to the patellar tendon. Sequela from infection not excludable. patient will follow-up with orthopedic surgeon Dr. Estrada on January, for possible needle biopsy. * white blood cell count within normal limits <John Curran DERICK - Last Filed: 01/23/20 11:34> (4) Type 2 diabetes mellitus: Code(s): E11.9 - Type 2 diabetes mellitus without complications <DERICK Car - Last Filed: 01/23/20 11:34> Status: Acute <DERICK Car - Last Filed: 01/23/20 11:34> Assessment and Plan: * not well controlled * patient to continue Lantus with sliding scale. started insulin with meals 5 units and metformin. will monitor and adjust as needed. * continue diabetic meal * blood sugar today 224 <John Curran DERICK - Last Filed: 01/23/20 11:34> (5) Diastolic heart failure: Code(s): I50.30 - Unspecified diastolic (congestive) heart failure <John Curran DERICK - Last Filed: 01/23/20 11:34> Status: Acute <John Curran DERICK - Last Filed: 01/23/20 11:34> Assessment and Plan: * patient's Lasix increased to 60 mg p.o. daily by previous provider * today patient does not have any signs and symptoms fluid overload * daily weight review * previous echo showing moderate LVH * continue strict I/Os <John Curran DERICK - Last Filed: 01/23/20 11:34> Subjective Date/time seen: 01/23/20 11:08 Renate is sitting up in a recliner this assessment. she notes that she still continues to have pain with been improving with pain medication. She also note that her physical therapy is going well and she will be ready for discharge on Tuesday. Dr. Day and I
--- NOTE | 2020-01-23 11:08 | PM.IMPN ---
Progress Note: A&P Assessment and Plan (1) Weakness: Code(s): R53.1 - Weakness <SASHA CarC - Last Filed: 01/23/20 11:34> Status: Acute <DERICK Car - Last Filed: 01/23/20 11:34> Assessment and Plan: Exhibit tolerance during physical activity as evidenced by a normal fluctuation of vital signs during physical activity. Patient will be ability to perform required activities of daily living. Provide appropriate nutrition for healing and strength. Use appropriate to prevent falls. Continue physical therapy/occupational therapy. <SASHA CarC - Last Filed: 01/23/20 11:34> (2) COVID-19 virus infection: Code(s): U07.1 - COVID-19 <SASHA CarC - Last Filed: 01/23/20 11:34> Status: Acute <DERICK Car - Last Filed: 01/23/20 11:34> Assessment and Plan: resolved discontinued airborne isolation found to be COVID positive in early December. <SASHA CarC - Last Filed: 01/23/20 11:34> (3) Septic arthritis of knee, right: Code(s): M00.9 - Pyogenic arthritis, unspecified <SASHA CarC - Last Filed: 01/23/20 11:34> Status: Acute <DERICK Car - Last Filed: 01/23/20 11:34> Assessment and Plan: Recurrent right prostatic knee septic arthritis status post right knee I and D Plus exchange of antibiotic cement spacer a second time due to free current carol ann prostatic infection MID continue antibiotics f IV vancomycin until January 26, she has completed her Rifampin dosing. PT OT evaluation and treatment CRP and ESR not ordered yesterday we ordered today for tomorrow morning continue use of leg brace knee x-ray indicates - Localized osteopenia at the tibial tuberosity. Small focus of gas anterior to the patellar tendon. Sequela from infection not excludable. patient will follow-up with orthopedic surgeon Dr. Estrada on January, for possible needle biopsy. white blood cell count within normal limits <DERICK Car - Last Filed: 01/23/20 11:34> (4) Type 2 diabetes mellitus: Code(s): E11.9 - Type 2 diabetes mellitus without complications <DERICK Car - Last Filed: 01/23/20 11:34> Status: Acute <DERICK Car - Last Filed: 01/23/20 11:34> Assessment and Plan: not well controlled patient to continue Lantus with sliding scale. started insulin with meals 5 units and metformin. will monitor and adjust as needed. continue diabetic meal blood sugar today 224 <DERICK Car - Last Filed: 01/23/20 11:34> (5) Diastolic heart failure: Code(s): I50.30 - Unspecified diastolic (congestive) heart failure <DERICK Car - Last Filed: 01/23/20 11:34> Status: Acute <DERICK Car - Last Filed: 01/23/20 11:34> Assessment and Plan: patient's Lasix increased to 60 mg p.o. daily by previous provider today patient does not have any signs and symptoms fluid overload daily weight review previous echo showing moderate LVH continue strict I/Os <DERICK Car - Last Filed: 01/23/20 11:34> Subjective Date/time seen: 01/23/20 11:08 Renate is sitting up in a recliner this assessment. she notes that she still continues to have pain with been improving with pain medication. She also note that her physical therapy is going well and she will be ready for discharge on Tuesday. Dr. Day and I, discussed the importance of controlling her blood sugars for proper healing and adding insulin with her meals to improve her blood sugars. patient agrees to plan. I also discussed her discharge plan for Tuesday and her follow-up appointment with her orthopedic surgery on Tuesday. patient's surgical site does not show any obvious signs and symptoms of infection wo
[2020-01-23 11:26] LABS: Estimated Glomerular Filt Rate > 60
[2020-01-23 11:39] LABS: Glucose Point of Care 170 (65-105)
[2020-01-23 15:17] VITALS: BP 122/52; PULSE 73; RESP 18; TEMP 37.3; O2SAT 95
[2020-01-23 16:41] LABS: Glucose Point of Care 126 (65-105)
[2020-01-23] MEDS: metFORMIN HCL 500 MG TABLET PO (16:51)
--- NOTE | 2020-01-23 17:21 | PC.NURSE ---
Not happy with menu selection, asked to speak with dietary department, informed dietary and to call and speak with patient
--- NOTE | 2020-01-23 18:30 | PC.NURSE ---
In chair with legs elevated, denies needs, personal items in reach
[2020-01-23 21:31] VITALS: PULSE 78
[2020-01-23] MEDS: INSULIN GLARGINE (*BKC) 100 UNITS/ML 26 UNITS SUB-Q (21:41)
[2020-01-23 21:59] LABS: Glucose Point of Care 171 (65-105)
[2020-01-23 23:20] VITALS: BP 130/64; PULSE 74; RESP 18; TEMP 36.8; O2SAT 96
[2020-01-24] VITALS: BP 156/42; PULSE 78; RESP 18; TEMP 36.5; O2SAT 96
[2020-01-24] MEDS: GABAPENTIN 400 MG CAPSULE PO ×2 (00:46→20:27)
[2020-01-24 05:44] LABS: CRP 1.5 mg/dL (0.0-0.9)
[2020-01-24 06:31] LABS: Erythrocyte Sedimentation Rate 52 mm/hr (0-20)
[2020-01-24 07:50] VITALS: BP 132/49; PULSE 66; RESP 18; TEMP 36.8; O2SAT 92
[2020-01-24 08:08] LABS: Glucose Point of Care 67 (65-105)
--- NOTE | 2020-01-24 09:30 | PC.NURSE ---
Patient resting in recliner with BLE elevated. Shows no signs of distress. Breathing even and unlabored. Call light at side.
[2020-01-24] MEDS: FUROSEMIDE 40 MG TABLET 60 MG PO (09:32)
[2020-01-24] MEDS: ATORVASTATIN 10 MG TABLET 40 MG PO (09:33)
[2020-01-24] MEDS: AMOXICILLIN/CLAVULANATE K 875-125 MG TAB 1 TABLET PO ×2 (09:34→20:26)
[2020-01-24] MEDS: CHOLECALCIFEROL 1,000 UNIT TABLET 5000 UNITS PO (09:34)
[2020-01-24 09:35] VITALS: PULSE 68
[2020-01-24] MEDS: ASPIRIN 325 MG ENTERIC TABLET PO (09:35)
[2020-01-24] MEDS: metFORMIN HCL 500 MG TABLET 1000 MG PO (09:35)
[2020-01-24] MEDS: PANTOPRAZOLE 40 MG TABLET PO (09:35)
[2020-01-24] MEDS: AMLODIPINE BESYLATE 5 MG TABLET 10 MG PO (09:35)
[2020-01-24] MEDS: METOPROLOL TARTRATE 50 MG TAB PO ×2 (09:35→23:07)
[2020-01-24] MEDS: lisinopriL 20 MG TABLET 40 MG PO (09:36)
[2020-01-24] MEDS: FERROUS SULFATE 324 MG TABLET PO (09:36)
[2020-01-24] MEDS: MAGNESIUM OXIDE 400 MG TABLET PO ×2 (09:36→16:56)
[2020-01-24] MEDS: hydrALAZINE HCL 25 MG TABLET 50 MG PO ×4 (09:36→20:27)
[2020-01-24] MEDS: ALBUTEROL SULFATE (*SP) INHALER 2 PUFF INHALATION ×3 (09:37→20:27)
[2020-01-24 09:54] LABS: Glucose Point of Care 213 (65-105)
--- NOTE | 2020-01-24 10:30 | PC.NURSE ---
Patient resting in recliner with BLE elevated. Shows no signs of distress. Breathing even and unlabored. Call light at side.
[2020-01-24] MEDS: VANCOMYCIN HCL 750 MG in SODIUM CHLORIDE 0.9% IV 250 ML 250 MG IVPB ×2 (11:23→23:24)
[2020-01-24 12:18] LABS: Glucose Point of Care 156 (65-105)
[2020-01-24 16:00] VITALS: BP 134/58; PULSE 82; RESP 18; TEMP 36.9; O2SAT 94
[2020-01-24 16:54] LABS: Glucose Point of Care 122 (65-105)
[2020-01-24] MEDS: metFORMIN HCL 500 MG TABLET PO (16:56)
[2020-01-24] MEDS: INSULIN GLARGINE (*BKC) 100 UNITS/ML 20 UNITS SUB-Q (20:29)
[2020-01-24 20:37] LABS: Glucose Point of Care 229 (65-105)
[2020-01-24 22:16] LABS: Vancomycin Trough 18.9 ug/mL (10.0-15.0)
[2020-01-24 23:07] VITALS: PULSE 74
[2020-01-24 23:26] VITALS: BP 126/33; PULSE 69; RESP 18; TEMP 36.4; O2SAT 94
[2020-01-25] MEDS: ALBUTEROL SULFATE (*SP) INHALER 2 PUFF INHALATION ×3 (06:28→22:04)
[2020-01-25 07:25] LABS: Glucose Point of Care 138 (65-105)
[2020-01-25 07:35] VITALS: BP 137/47; PULSE 67; RESP 18; TEMP 36.8; O2SAT 94
[2020-01-25] MEDS: metFORMIN HCL 500 MG TABLET 1000 MG PO (08:24)
[2020-01-25] MEDS: MAGNESIUM OXIDE 400 MG TABLET PO ×2 (09:08→17:54)
[2020-01-25] MEDS: ATORVASTATIN 10 MG TABLET 40 MG PO (09:08)
[2020-01-25] MEDS: PANTOPRAZOLE 40 MG TABLET PO (09:08)
[2020-01-25] MEDS: ASPIRIN 325 MG ENTERIC TABLET PO (09:08)
[2020-01-25] MEDS: CHOLECALCIFEROL 1,000 UNIT TABLET 5000 UNITS PO (09:08)
[2020-01-25] MEDS: FERROUS SULFATE 324 MG TABLET PO (09:09)
[2020-01-25] MEDS: AMLODIPINE BESYLATE 5 MG TABLET 10 MG PO (09:09)
[2020-01-25] MEDS: lisinopriL 20 MG TABLET 40 MG PO (09:09)
[2020-01-25] MEDS: FUROSEMIDE 40 MG TABLET 60 MG PO (09:09)
[2020-01-25] MEDS: hydrALAZINE HCL 25 MG TABLET 50 MG PO ×3 (09:09→22:05)
[2020-01-25] MEDS: METOPROLOL TARTRATE 50 MG TAB PO ×2 (09:10→22:05)
[2020-01-25] MEDS: VANCOMYCIN HCL 750 MG in SODIUM CHLORIDE 0.9% IV 250 ML 250 MG IVPB ×2 (09:27→22:06)
--- NOTE | 2020-01-25 10:59 | PC.NURSE ---
Out on pass via wheel chair for dr appointment with sister in [place]
--- NOTE | 2020-01-25 15:03 | PC.NURSE ---
pt is still off the floor, on a pass for dr hicks
--- NOTE | 2020-01-25 17:06 | PC.NURSE ---
pt still has not returned, social service agency director has attempted to contact sister and 's office to speak with pt but no answer
[2020-01-25 18:03] LABS: Glucose Point of Care 297 (65-105)
[2020-01-25] MEDS: metFORMIN HCL 500 MG TABLET PO (18:03)
--- NOTE | 2020-01-25 18:05 | PC.NURSE ---
pt has returned form , states she does not have any paperwork from drs appointment, requests dinner tray and tea, had [employer] for lunch but this is the last time she reports eating
[2020-01-25 21:57] VITALS: BP 133/47; PULSE 75; RESP 18; TEMP 37; O2SAT 91
[2020-01-25] MEDS: INSULIN GLARGINE (*BKC) 100 UNITS/ML 20 UNITS SUB-Q (22:04)
[2020-01-25 22:09] LABS: Glucose Point of Care 334 (65-105)
[2020-01-26] MEDS: ALBUTEROL SULFATE (*SP) INHALER 2 PUFF INHALATION ×4 (06:36→20:39)
[2020-01-26 07:23] LABS: Glucose Point of Care 188 (65-105)
[2020-01-26 08:00] VITALS: BP 90/60; PULSE 72; RESP 18; TEMP 37; O2SAT 94
[2020-01-26] MEDS: metFORMIN HCL 500 MG TABLET 1000 MG PO (08:18)
[2020-01-26] MEDS: CHOLECALCIFEROL 1,000 UNIT TABLET 5000 UNITS PO (09:23)
[2020-01-26] MEDS: ATORVASTATIN 40 MG TABLET PO (09:24)
[2020-01-26] MEDS: MAGNESIUM OXIDE 400 MG TABLET PO ×2 (09:25→17:14)
[2020-01-26] MEDS: FUROSEMIDE 40 MG TABLET 60 MG PO (09:25)
[2020-01-26] MEDS: ASPIRIN 325 MG ENTERIC TABLET PO (09:25)
[2020-01-26] MEDS: lisinopriL 20 MG TABLET 40 MG PO (09:25)
[2020-01-26] MEDS: AMLODIPINE BESYLATE 5 MG TABLET 10 MG PO (09:26)
[2020-01-26] MEDS: FERROUS SULFATE 324 MG TABLET PO (09:27)
[2020-01-26 09:28] VITALS: PULSE 72
[2020-01-26] MEDS: METOPROLOL TARTRATE 50 MG TAB PO ×2 (09:28→20:37)
[2020-01-26] MEDS: hydrALAZINE HCL 25 MG TABLET 50 MG PO ×4 (09:28→20:36)
[2020-01-26] MEDS: PANTOPRAZOLE 40 MG TABLET PO (09:28)
[2020-01-26] MEDS: VANCOMYCIN HCL 750 MG in SODIUM CHLORIDE 0.9% IV 250 ML 250 MG IVPB ×2 (09:30→22:37)
[2020-01-26 11:22] LABS: Glucose Point of Care 161 (65-105)
--- NOTE | 2020-01-26 11:35 | PC.NURSE ---
In chair denies needs, no distress, occassional loose cough noted
[2020-01-26 15:19] VITALS: BP 128/74; PULSE 70; RESP 18; TEMP 36.8; O2SAT 97
[2020-01-26] MEDS: metFORMIN HCL 500 MG TABLET PO (17:14)
[2020-01-26 17:17] LABS: Glucose Point of Care 217 (65-105)
[2020-01-26 20:37] VITALS: PULSE 80
[2020-01-26 20:48] LABS: Glucose Point of Care 210 (65-105)
[2020-01-26] MEDS: INSULIN GLARGINE (*BKC) 100 UNITS/ML 20 UNITS SUB-Q (20:49)
[2020-01-27] VITALS: BP 117/47; PULSE 80; RESP 18; TEMP 36.2; O2SAT 97
[2020-01-27 05:34] LABS: Hematocrit 33.4 % (35.0-49.0); Mean Corpuscular HGB Conc 29.9 g/dL (32.0-36.0); Mean Corpuscular Hemoglobin 26.4 pg (27.0-31.0); Mean Corpuscular Volume 88.1 fL (78.0-102.0); Mean Platelet Volume 11.7 fl (9.2-11.8); Platelet Count Result 301 K/mm3 (150-420); Red Blood Count 3.79 M/mm3 (4.20-5.40); Red Cell Distribution Width 17.1 % (11.6-14.4); White Blood Count 4.9 K/mm3 (4.8-10.8)
[2020-01-27 05:49] LABS: Alanine Aminotransferase 16 U/L (14-59); Albumin Level 3.3 g/dL (3.4-5.0); Alkaline Phosphatase 74 U/L (46-116); Anion Gap 13.2 mmol/L (7-16); Aspartate Amino Transferase 14 U/L (15-37); Bilirubin,Total 0.3 mg/dL (0.00-1.00); Blood Urea Nitrogen 19 mg/dL (7-18); CRP 1.1 mg/dL (0.0-0.9); Calcium 8.9 mg/dL (8.5-10.1); Carbon Dioxide 30 mmol/L (21-32); Chloride 100 mmol/L (98-108); Estimated Glomerular Filt Rate > 60; Glucose 191 mg/dL (70-99); Magnesium 1.7 mg/dL (1.8-2.4); Osmolality Calculated 295 mOsm/kg (285-295); Potassium 4.2 mmol/L (3.5-5.1); Sodium 139 mmol/L (136-145); Total Protein 6.6 g/dL (6.4-8.2)
[2020-01-27 06:33] LABS: Erythrocyte Sedimentation Rate 51 mm/hr (0-20)
[2020-01-27 07:18] VITALS: BP 133/57; PULSE 72; RESP 18; TEMP 37.2; O2SAT 94
[2020-01-27 07:18] LABS: Glucose Point of Care 178 (65-105)
[2020-01-27] MEDS: metFORMIN HCL 500 MG TABLET 1000 MG PO (07:58)
--- NOTE | 2020-01-27 08:16 | PC.NURSE ---
In chair eating breakfast, loose wheezing cough noted this am
[2020-01-27] MEDS: CHOLECALCIFEROL 1,000 UNIT TABLET 5000 UNITS PO (09:20)
[2020-01-27] MEDS: FUROSEMIDE 40 MG TABLET 60 MG PO (09:21)
[2020-01-27] MEDS: MAGNESIUM OXIDE 400 MG TABLET PO ×2 (09:21→10:41)
[2020-01-27] MEDS: AMLODIPINE BESYLATE 5 MG TABLET 10 MG PO (09:21)
[2020-01-27] MEDS: ASPIRIN 325 MG ENTERIC TABLET PO (09:21)
[2020-01-27 09:22] VITALS: PULSE 72
[2020-01-27] MEDS: FERROUS SULFATE 324 MG TABLET PO (09:22)
[2020-01-27] MEDS: lisinopriL 20 MG TABLET 40 MG PO (09:22)
[2020-01-27] MEDS: METOPROLOL TARTRATE 50 MG TAB PO (09:22)
[2020-01-27] MEDS: PANTOPRAZOLE 40 MG TABLET PO (09:22)
[2020-01-27] MEDS: ATORVASTATIN 40 MG TABLET PO (09:22)
[2020-01-27] MEDS: hydrALAZINE HCL 25 MG TABLET 50 MG PO ×2 (09:22→13:28)
[2020-01-27] MEDS: VANCOMYCIN HCL 750 MG in SODIUM CHLORIDE 0.9% IV 250 ML 250 MG IVPB (09:39)
[2020-01-27] MEDS: ALBUTEROL SULFATE (*SP) INHALER 2 PUFF INHALATION (09:39)
[2020-01-27 11:50] LABS: Glucose Point of Care 196 (65-105)
--- NOTE | 2020-01-27 13:17 | P.DS_ITS ---
DS: Admitting Diagnosis Admitting Diagnosis Admitting Diagnosis: Weakness <DERICK Car - Last Filed: 01/28/20 08:11> DS: Discharge Diagnosis Discharge Diagnosis (1) Weakness: Code(s): R53.1 - Weakness <DERICK Car - Last Filed: 01/28/20 08:11> Status: Acute <DERICK Car - Last Filed: 01/28/20 08:11> Assessment and Plan: * clear by physical therapy/occupational therapy to discharge home safely * Exhibit tolerance during physical activity as evidenced by a normal fluctuation of vital signs during physical activity. * Patient will be ability to perform required activities of daily living. * Provide appropriate nutrition for healing and strength. * Use appropriate to prevent falls. <DERICK Car - Last Filed: 01/28/20 08:11> (2) COVID-19 virus infection: Code(s): U07.1 - COVID-19 <DERICK Car - Last Filed: 01/28/20 08:11> Status: Acute <DERICK Car - Last Filed: 01/28/20 08:11> Assessment and Plan: * resolved * discontinued airborne isolation * found to be COVID positive in early December. 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 Small focus of gas anterior to the patellar tendon. Sequela from infection not excludable. patient will follow-up with orthopedic surgeon Dr. Estrada in 6 weeks * white blood cell count within normal limits <John BergeronBELEN MonsonAlysonSheree - Last Filed: 01/28/20 08:11> (4) Type 2 diabetes mellitus: Code(s): E11.9 - Type 2 diabetes mellitus without complications <John CurranYENNYJeanneSheree - Last Filed: 01/28/20 08:11> Status: Acute <John BergeronYENNY MonsonJeanneSheree - Last Filed: 01/28/20 08:11> Assessment and Plan: * better controlled on discharge * patient to follow-up with PCP <TerryDERICK Sommer - Last Filed: 01/28/20 08:11> (5) Diastolic heart failure: Code(s): I50.30 - Unspecified diastolic (congestive) heart failure <Terryromelia ElyssaBELEN MonsonAlysonSheree - Last Filed: 01/28/20 08:11> Status: Acute <John BergeronDavid Curran DERICK - Last Filed: 01/28/20 08:11> Assessment and Plan: * continue Lasix * today patient does not have any signs and symptoms fluid overload * daily weight review * previous echo showing moderate LVH <John BergeronBELEN MonsonAlysonSheree - Last Filed: 01/28/20 08:11> DS: Summary Hospital Course Hospital Course: H&P from admission Renate Godinez is a 59 year old female admitted to [facility] from [facility] in [facility] for weakness, recovering from COVID -19 infection, recovering from right knee septic arthritis IND, and continued treatment of type 2 diabetes and diastolic heart failure. We will continue IV vancomycin as ordered at her discharge from [facility]. She will have a PT and OT evaluation , she is currently on room air, has an occasional cough, but did no
--- NOTE | 2020-01-27 13:17 | PM.DS ---
DS: Admitting Diagnosis Admitting Diagnosis Admitting Diagnosis: Weakness <John Curran DERICK - Last Filed: 01/28/20 08:11> DS: Discharge Diagnosis Discharge Diagnosis (1) Weakness: Code(s): R53.1 - Weakness <John Curran DERICK - Last Filed: 01/28/20 08:11> Status: Acute <John Curran DERICK - Last Filed: 01/28/20 08:11> Assessment and Plan: clear by physical therapy/occupational therapy to discharge home safely Exhibit tolerance during physical activity as evidenced by a normal fluctuation of vital signs during physical activity. Patient will be ability to perform required activities of daily living. Provide appropriate nutrition for healing and strength. Use appropriate to prevent falls. <John BergeronBELEN MonsonAlysonSheree - Last Filed: 01/28/20 08:11> (2) COVID-19 virus infection: Code(s): U07.1 - COVID-19 <John Menon Magdy DERICK - Last Filed: 01/28/20 08:11> Status: Acute <John Curran DERICK - Last Filed: 01/28/20 08:11> Assessment and Plan: resolved discontinued airborne isolation found to be COVID positive in early December. 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 Small focus of gas anterior to the patellar tendon. Sequela from infection not excludable. patient will follow-up with orthopedic surgeon Dr. Estrada in 6 weeks white blood cell count within normal limits <DERICK Car - Last Filed: 01/28/20 08:11> (4) Type 2 diabetes mellitus: Code(s): E11.9 - Type 2 diabetes mellitus without complications <Terryromelia ElyssaDERICK Monson - Last Filed: 01/28/20 08:11> Status: Acute <Terryromelia ElyssaDERICK Monson - Last Filed: 01/28/20 08:11> Assessment and Plan: better controlled on discharge patient to follow-up with PCP <DERICK Car - Last Filed: 01/28/20 08:11> (5) Diastolic heart failure: Code(s): I50.30 - Unspecified diastolic (congestive) heart failure <DERICK Car - Last Filed: 01/28/20 08:11> Status: Acute <BELEN CarAlysonSheree - Last Filed: 01/28/20 08:11> Assessment and Plan: continue Lasix today patient does not have any signs and symptoms fluid overload daily weight review previous echo showing moderate LVH <TerryDERICK Sommer - Last Filed: 01/28/20 08:11> DS: Summary Hospital Course Hospital Course: H&P from admission Renate Godinez is a 59 year old female admitted to [facility] from [facility] in [facility] for weakness, recovering from COVID -19 infection, recovering from right knee septic arthritis IND, and continued treatment of type 2 diabetes and diastolic heart failure. We will continue IV vancomycin as ordered at her discharge from [facility]. She will have a PT and OT evaluation , she is currently on room air, has an occasional cough, but did not appear short of breath or dyspnea during our long conversation or during her transfer. She does have wheezing with lung auscultation and diminished areas throughout. patient will discharge today 01/27/2020 patient will discharge home today with home health. she has been cleared by PT/OT to discharge home. she is currently walking 150 ft. she will follow-up with her orthopedic
--- NOTE | 2020-01-27 14:31 | PCCCNOTE ---
FAX DISCHARGE INSTRUCTIONS TO [facility] DIRECTED.
[2020-01-27 15:46] VITALS: PULSE 70; RESP 18; O2SAT 94
--- NOTE | 2020-01-27 15:47 | PC.NURSE ---
Waiting on sister for ride home for discharge, denies needs at this time
[2020-01-27 16:43] LABS: Glucose Point of Care 150 (65-105)
--- NOTE | 2020-01-27 17:00 | PC.NURSE ---
Discharge via wheel chair with personal belongings with sister, discharge instructions reviewed no questions voiced, no pain upon discharge, reviewed safety and fall reduction
--- NOTE | 2020-02-25 11:33 | PCOTNOTE ---
Patient discharged home with family assist on 01/27/20. See patient's last treatment note for level of assist and functional status. MS
== END 2020-01-27 17:00 | disposition home health service (06) | DRG 178 ==
PROVIDERS: Emergency Medicine; Nurse Practitioner; Admitting Provider Family Medicine; Visit Provider Family Medicine
DX: U07.1 COVID-19 (principal); M00.9 Pyogenic arthritis, unspecified; I50.30 Unspecified diastolic (congestive) heart failure; T84.53XD Infection and inflammatory reaction due to internal right knee prosthesis, subsequent encounter; E11.9 Type 2 diabetes mellitus without complications; J44.9 Chronic obstructive pulmonary disease, unspecified; I11.0 Hypertensive heart disease with heart failure; R53.1 Weakness
CPT/HCPCS: 36415; 71045; 71046; 73564; 80048; 80053; 80202; 81001; 82306; 82565; 82728; 82947; 83036; 83540; 83550; 83735; 83880; 84443; 85025; 85027; 85652; 86140; 87086; 97110; 97161; 97165; 97530; 97535; A9270; J1650; J1815; J1940; J3370; J7050; J7512